=== PATIENT | male | born 1980 | race Caucasian/White ===

== ENCOUNTER 2017-05-11 15:35 | Emergency (ER) | payer SELFPAY ==
--- NOTE | 2017-05-11 15:57 | EDM.PDOC ---
ED HPI GENERAL MEDICAL PROBLEM - General Chief Complaint: Headache Stated Complaint: UNK Time Seen by Provider: 05/11/17 15:50 Source of Information: Reports: Patient History Limitations: Reports: No Limitations - History of Present Illness INITIAL COMMENTS - FREE TEXT/NARRATIVE: HISTORY AND PHYSICAL: History of present illness: [Patient comes to the emergency room with complaints of a headache. Began when he woke up around 9:00 this morning but became significantly worse around 9:30 when he also developed bloody nose. He has had some blurred vision but denies double vision and pain in his eyes. No chest pain shortness of breath or difficulty breathing. No nausea or vomiting. No weakness, numbness or tingling, no paralysis. Does not feel confused. He has no other complaints or concerns at this time. He reports a history of brain aneurysm 3-4 years ago at which time a benign brain mass was also found measuring approximately 1.6 cm. He underwent regular MRIs for several years while he lived in [place] and never experienced a change in size. He eventually got tired of the frequent follow-ups and so he quit going. Moved to [place] within the past month and has not yet established local primary care.] Review of systems: As per history of present illness and below otherwise all systems reviewed and negative. Past medical history: As per history of present illness and as reviewed below otherwise noncontributory. Surgical history: As per history of present illness and as reviewed below otherwise noncontributory. Social history: No reported history of drug or alcohol abuse. Family history: As per history of present illness and as reviewed below otherwise noncontributory. Physical exam: HEENT: Atraumatic, normocephalic. Wears glasses. Lungs: Clear to auscultation, breath sounds equal bilaterally. Heart: S1S2, regular rate and rhythm. Abdomen: Obese, Soft, nondistended, nontender. Pelvis: Stable nontender. Genitourinary: Deferred. Rectal: Deferred. Extremities: Atraumatic, ambulates without assistive device and difficulty. Moves all extremities without difficulty and weakness. Neurovascular unremarkable. Neuro: Awake, alert, oriented. Cranial nerves II through XII unremarkable. Motor and sensory unremarkable throughout. Exam nonfocal. Diagnostics: [CT head without contrast] Therapeutics: [Toradol 30 mg IV] Impression: [Headache] Plan: [Head CT shows 1.4 cm intraventricular lesion to the right frontal horn. There are no records available for review. Based on patient's report mass is unchanged. Toradol 30 mg given IV. Referral given to neurologist and primary care. He is in agreement with today's plan. All his questions are answered and concerns are addressed.] Definitive disposition and diagnosis as appropriate pending reevaluation and review of above. Headache Pain Score (Numeric/FACES): 7 - Related Data Allergies Allergy/AdvReac Type Severity Reaction Status Date / Time No Known Allergies Allergy Verified 05/11/17 15:41 Home Meds: Home Meds . [No Known Home Meds] 05/11/17 [History] Past Medical History Cardiovascular History: Reports: Aneurysm Neurological History: Reports: Other (See Below) Other Neuro History: brain aneurysm, brain mass - Infectious Disease History Infectious Disease History: Reports: Chicken Pox Social & Family History - Family History Family Medical History: Noncontributory - Tobacco Use Smoking Status *Q: Current Every Day Smoker Years of Tobacco use: 20 Packs/Tins Daily: 1 - Recreational Drug Use Recreational Drug Use: Yes Drug Use in Last 12 Months: No ED ROS GENERAL - Review of Systems Review Of Systems: ROS reveals no pertinent complaints other than HPI. - Physical Exam Exam: See Below Course - Vital Signs Last Recorded V/S: Last Vital Signs Temp 98.1 F 05/11/17 15:38 Pulse 78 05/11/17 16:47 Resp 14 05/11/17 16:47 BP 137/67 05/11/17 16:47 Pulse Ox 96 05/11/17 16:47 - Orders/Labs/Meds Orders: Active Orders 24 hr Category Date Time Status Head wo Cont [CT] Stat Exams 05/11/17 15:45 Taken Ketorolac [Toradol] Med 05/11/17 17:57 Once 30 mg IVPUSH ONETIME ONE Labs: Laboratory Tests 05/11/17 05/11/17 05/11/17 Range/Units 16:10 16:10 16:10 WBC 12.68 H (4.0-11.0) K/uL RBC 5.40 (4.50-5.90) M/uL Hgb 15.7 (13.0-17.0) g/dL Hct 46.2 (38.0-50.0) % MCV 85.6 (80.0-98.0) fL MCH 29.1 (27.0-32.0) pg MCHC 34.0 (31.0-37.0) g/dL RDW Std Deviation 50.3 (28.0-62.0) fl RDW Coeff of Vinh 16 H (11.0-15.0) % Plt Count 217 (150-400) K/uL MPV 9.80 (7.40-12.00) fL Add Manual Diff YES Neutrophils % (Manual) 62 (48.0-80.0) % Lymphocytes % (Manual) 23 (16.0-40.0) % Monocytes % (Manual) 11 (0.0-15.0) % Eosinophils % (Manual) 4 (0.0-7.0) % Nucleated RBC % 0.0 /100WBC Absolute Seg Neuts 7.9 H (1.4-5.7) Lymphocytes # (Manual) 2.9 H (0.6-2.4) Monocytes # (Manual) 1.4 H (0.0-0.8) Eosinophils # (Manual) 0.5 (0.0-0.7) Nucleated RBCs # 0 K/uL INR 1.00 (0.86-1.11) Sodium 137 (136-146) mmol/L Potassium 3.8 (3.5-5.1) mmol/L Chloride 103 (98-110) mmol/L Carbon Dioxide 24 (21-31) mmol/L BUN 12 (6.0-23.0) mg/dL Creatinine 0.7 (0.6-1.5) mg/dL Est Cr Clr Drug Dosing 157.05 mL/min Estimated GFR (MDRD) > 60.0 ml/min Glucose 107 (60-110) mg/dL Calcium 9.1 (8.8-10.8) mg/dL Total Bilirubin 0.2 (0.1-1.5) mg/dL AST 17 (5-40) IU/L ALT 25 (8-54) IU/L Alkaline Phosphatase 72 (40-150) Total Protein 6.8 (6.0-8.0) g/dL Albumin 3.5 (3.5-5.0) g/dL Globulin 3.3 (2.0-3.5) g/dL Albumin/Globulin Ratio 1.1 L (1.3-2.8) Departure - Departure Time of Disposition: 18:05 Disposition: Home, Self-Care 01 Condition: Good Clinical Impression: Headache, Brain mass - Discharge Information Referrals: PCP,None [Primary Care Provider] - Forms: ED Department Discharge Additional Instructions: The following information is given to patients seen in the emergency department who are being discharged to home. This information is to outline your options for follow-up care. We provide all patients seen in our emergency department with a follow-up referral. The need for follow-up, as well as the timing and circumstances, are variable depending upon the specifics of your emergency department visit. If you don't have a primary care physician on staff, we will provide you with a referral. We always advise you to contact your personal physician following an emergency department visit to inform them of the circumstance of the visit and for follow-up with them and/or the need for any referrals to a consulting specialist. The emergency department will also refer you to a specialist when appropriate. This referral assures that you have the opportunity for follow-up care with a specialist. All of these measure are taken in an effort to provide you with optimal care, which includes your follow-up. Under all circumstances we always encourage you to contact your private physician who remains a resource for coordinating your care. When calling for follow-up care, please make the office aware that this follow-up is from your recent emergency room visit. If for any reason you are refused follow-up, please contact the [facility] emergency department at and asked to speak to the emergency department charge nurse. [facility] Primary [facility] [address] [place] [id number] [facility] Specialty care- Neurology Professional Building [address] [place] [address], [address] [place] [address] Establish care with a local primary care provider's phone number is listed above. Schedule appointment with neurologist at clinic listed above. Use home medications for headache as needed. Return to ER as needed as discussed. - My Orders Last 24 Hours: My Active Orders 05/11/17 15:45 Head wo Cont [CT] Stat 05/11/17 17:57 Ketorolac [Toradol] 30 mg IVPUSH ONETIME ONE - Assessment/Plan Last 24 Hours: My Active Orders 05/11/17 15:45 Head wo Cont [CT] Stat 05/11/17 17:57 Ketorolac [Toradol] 30 mg IVPUSH ONETIME ONE
[2017-05-11 16:49] LABS: CHLORIDE,CL 103 mmol/L (98-110); SODIUM,NA 137 mmol/L (136-146)
[2017-05-11] MEDS ORDERED: Ketorolac 30 MG/ML SDV IVPUSH ONE (17:57)
[2017-05-11] MEDS ORDERED: Ketorolac 60 MG/2 ML SDV IM ONE (18:34)
--- NOTE | 2017-05-12 13:56 | CT ---
EXAM DATE: 05/11/17 PATIENT'S AGE: 36 Patient: LEE ANN PEERS Facility: [place], [place] Site . Site : 1980 Study: CT Head WO CONT [id number] 4:42:53 PM Ordering Physician: Doctor Mayen Final Report: INDICATION: Headache TECHNIQUE: CT head without contrast. COMPARISON: None available FINDINGS: The ventricles and sulci demonstrate normal configuration and size. There is a 1.4 x 0.7 x 0.6 centimeter ovoid isodense lesion within the right lateral ventricular frontal horn on image 32 with a small adjacent calcification. There is no mass effect or midline shift. There is no loss of aggarwal-white differentiation. There is no evidence of an acute intracranial hemorrhage. No acute calvarial fracture is seen. There are foci of mild paranasal sinus mucosal thickening. The mastoid air cells are clear. The visualized orbits are within normal limits. IMPRESSION: A 1.4 centimeter isodense intraventricular lesion in the right frontal horn. Recommend further evaluation with contrast MRI. Dictated by Davy Ko MD @ 05/11/2017 5:23:07 PM Dictated by: Davy Ko MD @ 05/11/2017 17:23:23 (Electronic Signature) Report Signed by Proxy. JESSICA
== END 2017-05-11 18:40 | disposition home or self-care (01) ==
LOC: MW.ED 15:35
DX: G93.89 Other specified disorders of brain (principal); R51 Headache; F17.210 Nicotine dependence, cigarettes, uncomplicated
CPT/HCPCS: 36415; 70450; 80053; 85025; 85610; 96372; 99284; J1885; 99283

== ENCOUNTER 2017-07-06 21:44 | Observation (INO) | payer SELFPAY ==
--- NOTE | 2017-07-06 21:59 | EDM.PDOC ---
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 Review of systems: As per history of present illness and below otherwise all systems reviewed and negative. Past medical history: As per history of present illness and as reviewed below otherwise noncontributory. Surgical history: As per history of present illness and as reviewed below otherwise noncontributory. Social history: No reported history of drug or alcohol abuse. Family history: As per history of present illness and as reviewed below otherwise noncontributory. Physical exam: HEENT: Atraumatic, normocephalic, pupils reactive, negative for conjunctival pallor or scleral icterus, mucous membranes moist, throat clear, neck supple, nontender, trachea midline. Lungs: Clear to auscultation, breath sounds equal bilaterally, chest nontender. Heart: S1S2, regular, negative for clicks, rubs, or JVD. Abdomen: Soft, nondistended, nontender. Negative for masses or hepatosplenomegaly. Negative for costovertebral tenderness. Pelvis: Stable nontender. Genitourinary: Deferred. Rectal: Deferred. Extremities: Patient has erythema noted bilaterally with warmth to palpation of his inferior extremities to his knees. There is no cords or calf pain CMS neurovascular unremarkable Neuro: Awake, alert, oriented. Cranial nerves II through XII unremarkable. Cerebellum unremarkable. Motor and sensory unremarkable throughout. Exam nonfocal. Diagnostics: CBC CMP UA UDS chest x-ray x-ray tib-fib bilaterally lactic acid Therapeutics: Saline 1 L bolus vancomycin 1 g IV Impression: #1 cellulitis Definitive disposition and diagnosis as appropriate pending reevaluation and review of above. bilateral leg Pain Score (Numeric/FACES): 2 - Related Data Allergies Allergy/AdvReac Type Severity Reaction Status Date / Time No Known Allergies Allergy Verified 07/06/17 21:47 Home Meds: Home Meds . [No Known Home Meds] 05/11/17 [History] Past Medical History HEENT History: Reports: None Cardiovascular History: Reports: Aneurysm Respiratory History: Reports: None Gastrointestinal History: Reports: None Genitourinary History: Reports: None Musculoskeletal History: Reports: None Neurological History: Reports: Other (See Below) Other Neuro History: brain aneurysm, brain mass 1.6cm Psychiatric History: Reports: None Endocrine/Metabolic History: Reports: None - Infectious Disease History Infectious Disease History: Reports: Chicken Pox Social & Family History - Family History Family Medical History: Noncontributory - Tobacco Use Smoking Status *Q: Current Every Day Smoker Years of Tobacco use: 15 Packs/Tins Daily: 2 - Recreational Drug Use Recreational Drug Use: Yes Drug Use in Last 12 Months: No Recreational Drug Type: Reports: Methamphetamine Review of Systems - Review of Systems Review Of Systems: ROS reveals no pertinent complaints other than HPI. ED EXAM, GENERAL - Physical Exam Exam: See Below (See dictated) Course - Vital Signs Last Recorded V/S: Last Vital Signs Temp 36.2 C 07/06/17 21:48 Pulse 96 07/06/17 21:48 Resp 22 H 07/06/17 21:48 BP 137/85 07/06/17 21:48 Pulse Ox 96 07/06/17 21:48 - Orders/Labs/Meds Orders: Active Orders 24 hr Category Date Time Status Tibia Fibula Lt [CR] Stat Exams 07/06/17 21:57 Taken Tibia Fibula Rt [CR] Stat Exams 07/06/17 21:57 Taken CULTURE BLOOD [BC] Stat Lab 07/06/17 22:11 Received CULTURE BLOOD [BC] Stat Lab 07/06/17 22:12 Received Blood Culture x2 Reflex Set [OM.PC] Stat Oth 07/06/17 21:57 Ordered Labs: Laboratory Tests 07/06/17 07/06/17 07/06/17 Range/Units 21:46 21:46 22:12 WBC 11.39 H (4.0-11.0) K/uL RBC 4.98 (4.50-5.90) M/uL Hgb 14.8 (13.0-17.0) g/dL Hct 43.5 (38.0-50.0) % MCV 87.3 (80.0-98.0) fL MCH 29.7 (27.0-32.0) pg MCHC 34.0 (31.0-37.0) g/dL RDW Std Deviation 47.4 (28.0-62.0) fl RDW Coeff of Vinh 15 (11.0-15.0) % Plt Count 218 (150-400) K/uL MPV 9.80 (7.40-12.00) fL Neut % (Auto) 63.7 (48.0-80.0) % Lymph % (Auto) 23.0 (16.0-40.0) % [place] % (Auto) 8.4 (0.0-15.0) % Eos % (Auto) 4.7 (0.0-7.0) % Baso % (Auto) 0.2 (0.0-1.5) % Neut # (Auto) 7.3 H (1.4-5.7) K/uL Lymph # (Auto) 2.6 H (0.6-2.4) K/uL [place] # (Auto) 1.0 H (0.0-0.8) K/uL Eos # (Auto) 0.5 (0.0-0.7) K/uL Baso # (Auto) 0.0 (0.0-0.1) K/uL Nucleated RBC % 0.0 /100WBC Nucleated RBCs # 0 K/uL Lactate (0.20-2.00) mmol/L Sodium (136-146) mmol/L Potassium (3.5-5.1) mmol/L Chloride (98-110) mmol/L Carbon Dioxide (21-31) mmol/L BUN (6.0-23.0) mg/dL Creatinine (0.6-1.5) mg/dL Est Cr Clr Drug Dosing mL/min Estimated GFR (MDRD) ml/min Glucose (60-110) mg/dL Calcium (8.8-10.8) mg/dL Total Bilirubin (0.1-1.5) mg/dL AST (5-40) IU/L ALT (8-54) IU/L Alkaline Phosphatase (40-150) Total Protein (6.0-8.0) g/dL Albumin (3.5-5.0) g/dL Globulin (2.0-3.5) g/dL Albumin/Globulin Ratio (1.3-2.8) Urine Color YELLOW Urine Appearance CLEAR Urine pH 7.5 (5.0-8.0) Ur Specific [place] 1.015 (1.001-1.035) Urine Protein NEGATIVE (NEGATIVE) mg/dL Urine Glucose (UA) NEGATIVE (NEGATIVE) mg/dL Urine Ketones NEGATIVE (NEGATIVE) mg/dL Urine Occult Blood NEGATIVE (NEGATIVE) Urine Nitrite NEGATIVE (NEGATIVE) Urine Bilirubin NEGATIVE (NEGATIVE) Urine Urobilinogen 0.2 (<2.0) EU/dL Ur Leukocyte Esterase NEGATIVE (NEGATIVE) Urine RBC 0-1 (0-2/HPF) Urine WBC 0-1 (0-5/HPF) Ur Epithelial Cells RARE (NONE-FEW) Urine Bacteria FEW (NEGATIVE) Urine Opiates Screen NEGATIVE (NEGATIVE) Ur Oxycodone Screen NEGATIVE (NEGATIVE) Urine Methadone Screen NEGATIVE (NEGATIVE) Ur Barbiturates Screen NEGATIVE (NEGATIVE) Ur Phencyclidine Scrn NEGATIVE (NEGATIVE) Ur Amphetamine Screen NEGATIVE (NEGATIVE) U Methamphetamines Scrn NEGATIVE (NEGATIVE) U Benzodiazepines Scrn NEGATIVE (NEGATIVE) U Cocaine Metab Screen NEGATIVE (NEGATIVE) U Marijuana (THC) Screen NEGATIVE (NEGATIVE) 07/06/17 07/06/17 Range/Units 22:12 22:12 WBC (4.0-11.0) K/uL RBC (4.50-5.90) M/uL Hgb (13.0-17.0) g/dL Hct (38.0-50.0) % MCV (80.0-98.0) fL MCH (27.0-32.0) pg MCHC (31.0-37.0) g/dL RDW Std Deviation (28.0-62.0) fl RDW Coeff of Vinh (11.0-15.0) % Plt Count (150-400) K/uL MPV (7.40-12.00) fL Neut % (Auto) (48.0-80.0) % Lymph % (Auto) (16.0-40.0) % [place] % (Auto) (0.0-15.0) % Eos % (Auto) (0.0-7.0) % Baso % (Auto) (0.0-1.5) % Neut # (Auto) (1.4-5.7) K/uL Lymph # (Auto) (0.6-2.4) K/uL [place] # (Auto) (0.0-0.8) K/uL Eos # (Auto) (0.0-0.7) K/uL Baso # (Auto) (0.0-0.1) K/uL Nucleated RBC % /100WBC Nucleated RBCs # K/uL Lactate 1.3 (0.20-2.00) mmol/L Sodium 138 (136-146) mmol/L Potassium 4.6 (3.5-5.1) mmol/L Chloride 103 (98-110) mmol/L Carbon Dioxide 26 (21-31) mmol/L BUN 14 (6.0-23.0) mg/dL Creatinine 0.8 (0.6-1.5) mg/dL Est Cr Clr Drug Dosing 137.42 mL/min Estimated GFR (MDRD) > 60.0 ml/min Glucose 115 H (60-110) mg/dL Calcium 9.2 (8.8-10.8) mg/dL Total Bilirubin 0.4 (0.1-1.5) mg/dL AST 33 (5-40) IU/L ALT 41 (8-54) IU/L Alkaline Phosphatase 68 (40-150) Total Protein 7.3 (6.0-8.0) g/dL Albumin 3.6 (3.5-5.0) g/dL Globulin 3.7 H (2.0-3.5) g/dL Albumin/Globulin Ratio 1.0 L (1.3-2.8) Urine Color Urine Appearance Urine pH (5.0-8.0) Ur Specific [place] (1.001-1.035) Urine Protein (NEGATIVE) mg/dL Urine Glucose (UA) (NEGATIVE) mg/dL Urine Ketones (NEGATIVE) mg/dL Urine Occult Blood (NEGATIVE) Urine Nitrite (NEGATIVE) Urine Bilirubin (NEGATIVE) Urine Urobilinogen (<2.0) EU/dL Ur Leukocyte Esterase (NEGATIVE) Urine RBC (0-2/HPF) Urine WBC (0-5/HPF) Ur Epithelial Cells (NONE-FEW) Urine Bacteria (NEGATIVE) Urine Opiates Screen (NEGATIVE) Ur Oxycodone Screen (NEGATIVE) Urine Methadone Screen (NEGATIVE) Ur Barbiturates Screen (NEGATIVE) Ur Phencyclidine Scrn (NEGATIVE) Ur Amphetamine Screen (NEGATIVE) U Methamphetamines Scrn (NEGATIVE) U Benzodiazepines Scrn (NEGATIVE) U Cocaine Metab Screen (NEGATIVE) U Marijuana (THC) Screen (NEGATIVE) Meds: Medications Discontinued Medications Generic Name Dose Route Start Last Admin Trade Name Geremias PRN Reason Stop Dose Admin Vancomycin HCl 1 gm/ Sodium 250 mls @ 250 mls/hr 07/06/17 21:57 07/06/17 22: 20 Chloride IV 07/06/17 22:56 250 mls/hr ONETIME ONE Administration Departure - Departure Time of Disposition: 23:11 Disposition: Refer to Observation Condition: Good Clinical Impression: Cellulitis - Discharge Information Referrals: PCP,None [Primary Care Provider] - Forms: ED Department Discharge - My Orders Last 24 Hours: My Active Orders 07/06/17 21:57 Tibia Fibula Lt [CR] Stat Tibia Fibula Rt [CR] Stat Blood Culture x2 Reflex Set [OM.PC] Stat 07/06/17 22:11 CULTURE BLOOD [BC] Stat 07/06/17 22:12 CULTURE BLOOD [BC] Stat - Assessment/Plan Last 24 Hours: My Active Orders 07/06/17 21:57 Tibia Fibula Lt [CR] Stat Tibia Fibula Rt [CR] Stat Blood Culture x2 Reflex Set [OM.PC] Stat 07/06/17 22:11 CULTURE BLOOD [BC] Stat 07/06/17 22:12 CULTURE BLOOD [BC] Stat
[2017-07-06 22:54] LABS: CHLORIDE,CL 103 mmol/L (98-110); SODIUM,NA 138 mmol/L (136-146)
[2017-07-07] MEDS ORDERED: Ondansetron 4 MG/2 ML SDV IVPUSH PRN (00:27)
[2017-07-07] MEDS ORDERED: Acetaminophen 325 MG Tab PO PRN (00:27)
[2017-07-07] MEDS: Nicotine 14 MG/24 Hr Patch TRDERM SCH ×2 (01:10→08:04)
[2017-07-07] MEDS ORDERED: Vancomycin 1 GM, Vancomycin 750 MG in Sodium Chloride 0.9% 500 ML IV SCH ×2 (06:00)
[2017-07-07 06:05] LABS: CHLORIDE,CL 104 mmol/L (98-110); SODIUM,NA 140 mmol/L (136-146)
[2017-07-07] MEDS: Vancomycin 1.75 GM in Sodium Chloride 0.9% 500 ML IV SCH ×2 (13:31→21:34)
[2017-07-07] MEDS ORDERED: Docusate Sodium 100 MG Cap PO PRN (14:44)
[2017-07-07] MEDS ORDERED: Albuterol/Ipratropium 3.0-0.5 MG/3 ML Neb Soln NEB PRN (14:44)
[2017-07-07] MEDS ORDERED: Ondansetron 4 MG Tab.DIS PO PRN (14:44)
--- NOTE | 2017-07-07 15:10 | PCM.HP ---
H&P History of Present Illness - General Date of Service: 07/07/17 Admit Problem/Dx: Admission Diagnosis/Problem Admission Diagnosis/Problem Cellulitis - History of Present Illness Initial Comments - Free Text/Narative: 36 yo male with no relevant pmh is admitted for cellulitis of BL LE. It began about 1 week ago. Patient denies any recent cuts, injuries, travel or hiking. He noticed pain and redness develop at his BL inner knees and inner lower legs. Over the next few days the pain owrsened and it got to the point where he was having difficulty walking which is why he decided to come in. He has been taking acetaminophen but it does not help with pain. He denies any fever, chillsm night sweats, nausea, vomiting, diarrhea or altered mental status. He denies any previous history of cellulitis or MRSA. He smokes 1 ppd. bilateral leg Pain Score (Numeric/FACES): 3 - Related Data Allergies/Adverse Reactions: Allergies Allergy/AdvReac Type Severity Reaction Status Date / Time No Known Allergies Allergy Verified 07/06/17 21:47 Home Medications: Home Meds . [No Known Home Meds] 05/11/17 [History] Past Medical History HEENT History: Reports: None Cardiovascular History: Reports: Aneurysm Other Cardiovascular History: 2007 brain aneurysm Respiratory History: Reports: None Gastrointestinal History: Reports: None Genitourinary History: Reports: None Musculoskeletal History: Reports: Fracture Neurological History: Reports: Other (See Below) Other Neuro History: brain aneurysm, brain mass 1.6cm Psychiatric History: Reports: Addiction, Anxiety, Depression Endocrine/Metabolic History: Reports: Obesity/BMI 30+ - Infectious Disease History Infectious Disease History: Reports: Chicken Pox - Past Surgical History Cardiovascular Surgical History: Reports: None Endocrine Surgical History: Reports: None Neurological Surgical History: Reports: None Social & Family History - Family History Family Medical History: Noncontributory - Tobacco Use Smoking Status *Q: Current Every Day Smoker Years of Tobacco use: 18 Packs/Tins Daily: 1 Second Hand Smoke Exposure: Yes - Caffeine Use Caffeine Use: Reports: Coffee, Energy Drinks, Soda, Tea - Alcohol Use Days Per Week of Alcohol Use: 0 - Recreational Drug Use Recreational Drug Use: Yes Drug Use in Last 12 Months: Yes Recreational Drug Type: Reports: Cocaine, Marijuana/Hashish, Methamphetamine Recreational Drug Use Frequency: Not Used In Over 5 Months H&P Review of Systems - Review of Systems: Review Of Systems: See Below General: Reports: No Symptoms HEENT: Reports: No Symptoms Pulmonary: Reports: No Symptoms Cardiovascular: Reports: No Symptoms Gastrointestinal: Reports: No Symptoms Genitourinary: Reports: No Symptoms Musculoskeletal: Reports: Foot Pain, Muscle Pain, Muscle Stiffness Skin: Reports: Change in Color Psychiatric: Reports: No Symptoms Neurological: Reports: No Symptoms Hematologic/Lymphatic: Reports: No Symptoms Immunologic: Reports: No Symptoms Exam - Exam Exam: See Below - Vital Signs Vital Signs: Last Vital Signs Temp 36.5 C 07/07/17 12:00 Pulse 87 07/07/17 12:00 Resp 22 H 07/07/17 12:00 BP 154/87 H 07/07/17 12:00 Pulse Ox 96 07/07/17 12:00 Weight: 184.295 kg - Exam General: Alert, Oriented, 4 HEENT: Conjunctiva Clear, EACs Clear, EOMI, Hearing Intact, Mucosa Moist & [place] , Nares Patent, Normal Nasal Septum, Posterior Pharynx Clear, PERRLA Neck: Supple, Trachea Midline, 2 Lungs: Clear to Auscultation, Normal Respiratory Effort Cardiovascular: Regular Rate, Regular Rhythm GI/Abdominal Exam: Normal Bowel Sounds, Soft, Non-Tender, No Organomegaly, No Distention Back Exam: Normal Inspection Extremities: Normal Range of Motion, Normal Capillary Refill, Other (Pain with flexion of BL kness and with dorsiflexion of BL feet ) Peripheral Pulses: 2+: Dorsalis Pedis (L), Dorsalis Pedis (R) Skin Alteration Location (Drawings Not To Scale): 1 - mild redness, warm, hard to palpation 2 - mild redness, warm, hard to palpation 3 - mild redness, warm, hard to palpation 4 - mild redness, warm, hard to palpation Neurological: Cranial Nerves Intact, Reflexes Equal Bilateral Neuro Extensive - Mental Status: Alert, Oriented x3 Neuro Extensive - Motor, Sensory, Reflexes: Normal Gait Psychiatric: Alert, Normal Affect, Normal Mood - Patient Data Lab Results Last 24 hrs: Laboratory Results - last 24 hr 07/07/17 07/07/17 Range/Units 05:19 05:19 WBC 10.04 (4.0-11.0) K/uL RBC 5.01 (4.50-5.90) M/uL Hgb 14.8 (13.0-17.0) g/dL Hct 44.3 (38.0-50.0) % MCV 88.4 (80.0-98.0) fL MCH 29.5 (27.0-32.0) pg MCHC 33.4 (31.0-37.0) g/dL RDW Std Deviation 48.3 (28.0-62.0) fl RDW Coeff of Vinh 15 (11.0-15.0) % Plt Count 214 (150-400) K/uL MPV 9.60 (7.40-12.00) fL Neut % (Auto) 60.0 (48.0-80.0) % Lymph % (Auto) 26.0 (16.0-40.0) % [place] % (Auto) 8.0 (0.0-15.0) % Eos % (Auto) 5.6 (0.0-7.0) % Baso % (Auto) 0.4 (0.0-1.5) % Neut # (Auto) 6.0 H (1.4-5.7) K/uL Lymph # (Auto) 2.6 H (0.6-2.4) K/uL [place] # (Auto) 0.8 (0.0-0.8) K/uL Eos # (Auto) 0.6 (0.0-0.7) K/uL Baso # (Auto) 0.0 (0.0-0.1) K/uL Nucleated RBC % 0.0 /100WBC Nucleated RBCs # 0 K/uL Sodium 140 (136-146) mmol/L Potassium 4.4 (3.5-5.1) mmol/L Chloride 104 (98-110) mmol/L Carbon Dioxide 29 (21-31) mmol/L BUN 14 (6.0-23.0) mg/dL Creatinine 0.7 (0.6-1.5) mg/dL Est Cr Clr Drug Dosing 157.05 mL/min Estimated GFR (MDRD) > 60.0 ml/min Glucose 93 (60-110) mg/dL Calcium 9.0 (8.8-10.8) mg/dL Result Diagrams: 07/07/17 05:19 07/07/17 05:19 *Q Meaningful Use (ADM) - VTE *Q VTE Criteria *Q: - Stroke *Q Stroke Criteria *Q: - AMI *Q AMI Criteria *Q: Problem List Initiated/Reviewed/Updated: Yes Orders Last 24hrs: Active Orders 24 hr Category Date Time Status Patient Status [ADT] Routine ADT 07/07/17 14:45 Active Antiembolic Devices [RC] PER UNIT ROUTINE Care 07/07/17 14:53 Ordered Oxygen Therapy [RC] PRN Care 07/07/17 14:45 Ordered RT Aerosol Therapy [RC] ASDIRECTED Care 07/07/17 14:59 Inactive Up ad Angela [RC] ASDIRECTED Care 07/07/17 14:44 Ordered VTE/DVT Education [RC] PER UNIT ROUTINE Care 07/07/17 14:45 Ordered Vital Signs [RC] Q4H Care 07/07/17 14:45 Ordered Regular Diet [DIET] Diet 07/07/17 Breakfast Active BASIC METABOLIC PANEL,BMP [CHEM] AM Lab 07/09/17 05:11 Ordered BASIC METABOLIC PANEL,BMP [CHEM] AM Lab 07/10/17 05:11 Ordered BASIC METABOLIC PANEL,BMP [CHEM] AM Lab 07/11/17 05:11 Ordered BASIC METABOLIC PANEL,BMP [CHEM] AM Lab 07/12/17 05:11 Ordered BASIC METABOLIC PANEL,BMP [CHEM] AM Lab 07/08/17 05:11 Ordered CBC WITH AUTO DIFF [HEME] AM Lab 07/09/17 05:11 Ordered CBC WITH AUTO DIFF [HEME] AM Lab 07/10/17 05:11 Ordered CBC WITH AUTO DIFF [HEME] AM Lab 07/11/17 05:11 Ordered CBC WITH AUTO DIFF [HEME] AM Lab 07/12/17 05:11 Ordered CBC WITH AUTO DIFF [HEME] AM Lab 07/08/17 05:11 Ordered VANCOMYCIN TROUGH [CHEM] Timed Lab 07/08/17 05:30 Ordered Acetaminophen [Tylenol] Med 07/07/17 00:27 Active 650 mg PO Q4H PRN Albuterol/Ipratropium [DuoNeb 3.0-0.5 MG/3 ML] Med 07/07/17 14:44 Stop Req 3 ml NEB Q4HRRT PRN Docusate Sodium [Colace] Med 07/07/17 14:44 Ordered 100 mg PO BID PRN Enoxaparin [Lovenox] Med 07/08/17 09:00 Ordered 40 mg SUBCUT DAILY Nicotine [Habitrol] Med 07/07/17 00:00 Active 14 mg TRDERM DAILY Nicotine [Habitrol] Med 07/07/17 14:45 Ordered 21 mg TRDERM DAILY Ondansetron [Zofran ODT] Med 07/07/17 14:44 Ordered 4 mg PO Q6H PRN Ondansetron [Zofran] Med 07/07/17 00:27 Active 4 mg IVPUSH Q4H PRN Vancomycin 1.75 gm Med 07/07/17 14:00 Active Sodium Chloride 0.9% [Normal Saline] 500 ml IV Q8H Vancomycin Pharmacy to Dose [Pharmacy to Dose - Med 07/07/17 00:30 Active Vancomycin] 1 dose .XX ASDIRECTED cefTRIAXone [Rocephin in Dextrose,Iso-Osm 2 GM/50 ML] 2 Med 07/07/17 14:45 Active gm Premix Bag 1 bag IV Q24H oxyCODONE Med 07/07/17 14:44 Ordered 5 mg PO Q6H PRN Sequential Compression Device [OM.PC] Per Unit Routine Oth 07/07/17 14:48 Ordered Resuscitation Status Routine Resus Stat 07/07/17 14:44 Ordered Medication Orders Acetaminophen (Tylenol) 650 mg PO Q4H PRN PRN Reason: Pain Last Admin: 07/07/17 12:07 Dose: 650 mg Albuterol/Ipratropium (Duoneb 3.0-0.5 Mg/3 Ml) 3 ml NEB Q4HRRT PRN PRN Reason: Shortness Of Breath/wheezing Docusate Sodium (Colace) 100 mg PO BID PRN PRN Reason: Constipation Enoxaparin Sodium (Lovenox) 40 mg SUBCUT DAILY [facility] Vancomycin HCl 1.75 gm/ Sodium (Chloride) 500 mls @ 333.333 mls/hr IV Q8H [facility] Last Admin: 07/07/17 13:31 Dose: 333.333 mls/hr Ceftriaxone Sodium/Dextrose 2 (gm/ Premix) 50 mls @ 100 mls/hr IV Q24H [facility] Nicotine (Habitrol) 14 mg TRDERM DAILY [facility] Last Admin: 07/07/17 08:04 Dose: 14 mg Admin: 07/07/17 01:10 Dose: 14 mg Nicotine (Habitrol) 21 mg TRDERM DAILY [facility] Ondansetron HCl (Zofran) 4 mg IVPUSH Q4H PRN PRN Reason: nausea/vomitting Ondansetron HCl (Zofran Odt) 4 mg PO Q6H PRN PRN Reason: nausea, able to take PO Oxycodone HCl (Oxycodone) 5 mg PO Q6H PRN PRN Reason: Pain (Moderate over 4) Vancomycin HCl (Pharmacy To Dose - Vancomycin) 1 dose .XX ASDIRECTED [facility] Assessment/Plan Comment:: 36 year old male with no relevant pmh admitted for cellulitis of BL LE. Labs and vitals WNL. Blood cultures obtained ED. Afebrile. XR of BL Tibia-Fibula negative for acute changes 1. Cellulitis, BL LE -admit to obs -regular diet -start Rocephin IV and Vancomycin IV -Acetaminophen for mild pain -Oxycodone 5 mg q6hour PRN for moderate pain 5 or above -f/u blood cultures obtained in ED 2. Tobacco Abuse -Nicotine Patch 21 mg
[2017-07-07] MEDS: oxyCODONE 5 MG Tab PO PRN (16:51)
[2017-07-07] MEDS: cefTRIAXone 2 GM in Premix Bag 1 BAG IV SCH (16:57)
[2017-07-07] MEDS: Nicotine 21 MG/24 Hr Patch TRDERM SCH (17:03)
[2017-07-07] MEDS ORDERED: Furosemide 40 MG Tab PO ONE (19:52)
[2017-07-08 06:35] LABS: CHLORIDE,CL 105 mmol/L (98-110); SODIUM,NA 139 mmol/L (136-146)
[2017-07-08] MEDS: Vancomycin 1.75 GM in Sodium Chloride 0.9% 500 ML IV SCH ×3 (07:05→22:05)
[2017-07-08] MEDS: Enoxaparin 40 MG/0.4 ML Syringe SUBCUT SCH (08:28)
[2017-07-08] MEDS ORDERED: Furosemide 40 MG/4 ML VIAL IVPUSH ONE (10:28)
[2017-07-08] MEDS ORDERED: Furosemide 40 MG Tab PO ONE (10:29)
--- NOTE | 2017-07-08 10:32 | PCM.PN ---
- Review of Systems Systems Review Comment:: edema improving, shortness of breath improving - Patient Data Vitals - Most Recent: Last Vital Signs Temp 36.7 C 07/08/17 08:00 Pulse 84 07/08/17 08:00 Resp 18 07/08/17 08:00 BP 133/53 L 07/08/17 08:00 Pulse Ox 97 07/08/17 08:00 Weight - Most Recent: 184.295 kg I&O - Last 24 Hours: Intake & Output 07/07/17 07/08/17 07/08/17 22:59 06:59 14:59 Intake Total 2180 1695 Output Total 2050 1750 Balance 130 -55 Lab Results Last 24 Hours: Laboratory Results - last 24 hr 07/08/17 07/08/17 07/08/17 Range/Units 05:31 05:31 05:31 WBC 9.97 (4.0-11.0) K/uL RBC 4.99 (4.50-5.90) M/uL Hgb 14.3 (13.0-17.0) g/dL Hct 44.6 (38.0-50.0) % MCV 89.4 (80.0-98.0) fL MCH 28.7 (27.0-32.0) pg MCHC 32.1 (31.0-37.0) g/dL RDW Std Deviation 49.8 (28.0-62.0) fl RDW Coeff of Vinh 15 (11.0-15.0) % Plt Count 229 (150-400) K/uL MPV 10.00 (7.40-12.00) fL Neut % (Auto) 58.6 (48.0-80.0) % Lymph % (Auto) 26.8 (16.0-40.0) % [place] % (Auto) 8.0 (0.0-15.0) % Eos % (Auto) 6.2 (0.0-7.0) % Baso % (Auto) 0.4 (0.0-1.5) % Neut # (Auto) 5.8 H (1.4-5.7) K/uL Lymph # (Auto) 2.7 H (0.6-2.4) K/uL [place] # (Auto) 0.8 (0.0-0.8) K/uL Eos # (Auto) 0.6 (0.0-0.7) K/uL Baso # (Auto) 0.0 (0.0-0.1) K/uL Nucleated RBC % 0.0 /100WBC Nucleated RBCs # 0 K/uL Sodium 139 (136-146) mmol/L Potassium 4.3 (3.5-5.1) mmol/L Chloride 105 (98-110) mmol/L Carbon Dioxide 25 (21-31) mmol/L BUN 14 (6.0-23.0) mg/dL Creatinine 0.7 (0.6-1.5) mg/dL Est Cr Clr Drug Dosing 157.05 mL/min Estimated GFR (MDRD) > 60.0 ml/min Glucose 112 H (60-110) mg/dL Calcium 8.7 L (8.8-10.8) mg/dL Vancomycin Trough 10.2 (5-15) ug/mL Med Orders - Current: Current Medications Acetaminophen (Tylenol) 650 mg PO Q4H PRN PRN Reason: Pain Last Admin: 07/07/17 12:07 Dose: 650 mg Docusate Sodium (Colace) 100 mg PO BID PRN PRN Reason: Constipation Enoxaparin Sodium (Lovenox) 40 mg SUBCUT DAILY [facility] Last Admin: 07/08/17 08:28 Dose: 40 mg Vancomycin HCl 1.75 gm/ Sodium (Chloride) 500 mls @ 333.333 mls/hr IV Q8H [facility] Last Admin: 07/08/17 07:05 Dose: 333.333 mls/hr Ceftriaxone Sodium/Dextrose 2 (gm/ Premix) 50 mls @ 100 mls/hr IV Q24H [facility] Last Admin: 07/07/17 16:57 Dose: 100 mls/hr Nicotine (Habitrol) 21 mg TRDERM Q24H [facility] Last Admin: 07/07/17 17:03 Dose: 21 mg Ondansetron HCl (Zofran) 4 mg IVPUSH Q4H PRN PRN Reason: nausea/vomitting Ondansetron HCl (Zofran Odt) 4 mg PO Q6H PRN PRN Reason: nausea, able to take PO Oxycodone HCl (Oxycodone) 5 mg PO Q6H PRN PRN Reason: Pain (Moderate over 4) Last Admin: 07/07/17 16:51 Dose: 5 mg Vancomycin HCl (Pharmacy To Dose - Vancomycin) 1 dose .XX ASDIRECTED [facility] Discontinued Medications Albuterol/Ipratropium (Duoneb 3.0-0.5 Mg/3 Ml) 3 ml NEB Q4HRRT PRN PRN Reason: Shortness Of Breath/wheezing Furosemide (Lasix) 40 mg PO ONETIME ONE Stop: 07/07/17 19:53 Last Admin: 07/07/17 21:34 Dose: 40 mg Furosemide (Lasix) 40 mg IVPUSH NOW ONE Stop: 07/08/17 10:29 Furosemide (Lasix) 40 mg PO ONETIME ONE Stop: 07/08/17 10:30 Vancomycin HCl 1 gm/ Sodium (Chloride) 250 mls @ 250 mls/hr IV ONETIME ONE Stop: 07/06/17 22:56 Last Admin: 07/06/17 22:20 Dose: 250 mls/hr Vancomycin HCl 0.75 gm/ Sodium (Chloride) 250 mls @ 166.667 mls/hr IV ONETIME ONE Stop: 07/07/17 02:29 Last Admin: 07/07/17 01:29 Dose: 166.667 mls/hr Vancomycin HCl 1 gm/Vancomycin HCl 750 mg/ Sodium Chloride 500 mls @ 333.333 mls/hr IV Q8H [facility] Last Admin: 07/07/17 06:29 Dose: 333.333 mls/hr Nicotine (Habitrol) 14 mg TRDERM DAILY [facility] Last Admin: 07/07/17 08:04 Dose: 14 mg - Exam General: Alert, Oriented Lungs: Clear to Auscultation, Normal Respiratory Effort Cardiovascular: Regular Rate, Regular Rhythm GI/Abdominal Exam: Soft, Non-Tender Extremities: Other (edema and erythem of lower legs improving) - Problem List Review Problem List Initiated/Reviewed/Updated: Yes - My Orders Last 24 Hours: My Active Orders 07/07/17 14:00 Vancomycin 1.75 gm Sodium Chloride 0.9% [Normal Saline] 500 ml IV Q8H 07/07/17 19:52 Chest 2V [CR] Routine 07/08/17 10:28 Furosemide [Lasix] 40 mg IVPUSH NOW ONE - Plan Plan:: 36 year old male with no relevant pmh admitted for cellulitis of BL LE. 1. Cellulitis, BL LE continue vancomycina and rocephin will give addition 40mg lasix today, patient will need referal for outpatient echocardiogram 2. Tobacco Abuse -Nicotine Patch 21 mg
[2017-07-08] MEDS: Nicotine 21 MG/24 Hr Patch TRDERM SCH (15:12)
[2017-07-08] MEDS: cefTRIAXone 2 GM in Premix Bag 1 BAG IV SCH (15:12)
[2017-07-08] MEDS: oxyCODONE 5 MG Tab PO PRN (20:02)
[2017-07-09] MEDS: Vancomycin 1.75 GM in Sodium Chloride 0.9% 500 ML IV SCH ×2 (06:06→14:41)
[2017-07-09 07:15] LABS: CHLORIDE,CL 104 mmol/L (98-110); SODIUM,NA 139 mmol/L (136-146)
[2017-07-09] MEDS: oxyCODONE 5 MG Tab PO PRN ×2 (07:22→14:40)
[2017-07-09] MEDS: Enoxaparin 40 MG/0.4 ML Syringe SUBCUT SCH (09:05)
--- NOTE | 2017-07-09 13:45 | PCM.DCSUM1 ---
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 He was admitted for cellulitis and treated with IV vancomycin and zosyn. He did received two doses of lasix daily that helped improve edema. He did have improvement of erythema and today is requesting discharge home. He was discharged on oral Bactrim for five more days. He is to follow up with a PCP at [facility]. - Discharge Plan Prescriptions/Med Rec: Sulfamethoxazole/Trimethoprim [Bactrim Ds Tablet] 1 each PO BID #10 tablet Home Medications: Home Meds Sulfamethoxazole/Trimethoprim [Bactrim Ds Tablet] 1 each PO BID #10 tablet 07/09 [Rx] Forms: ED Department Discharge Referrals: PCP,None [Primary Care Provider] - - Patient Data Vitals - Most Recent: Last Vital Signs Temp 36.6 C 07/09/17 11:35 Pulse 80 07/09/17 11:35 Resp 17 07/09/17 11:35 BP 140/71 07/09/17 11:35 Pulse Ox 94 L 07/09/17 11:35 Weight - Most Recent: 184.295 kg I&O - Last 24 hours: Intake & Output 07/08/17 07/09/17 07/09/17 22:59 06:59 14:59 Intake Total 2100 1210 Output Total 2680 2950 Balance -580 -1740 Lab Results - Last 24 hrs: Laboratory Results - last 24 hr 07/09/17 07/09/17 Range/Units 05:55 05:55 WBC 10.02 (4.0-11.0) K/uL RBC 5.00 (4.50-5.90) M/uL Hgb 14.6 (13.0-17.0) g/dL Hct 44.5 (38.0-50.0) % MCV 89.0 (80.0-98.0) fL MCH 29.2 (27.0-32.0) pg MCHC 32.8 (31.0-37.0) g/dL RDW Std Deviation 48.4 (28.0-62.0) fl RDW Coeff of Vinh 15 (11.0-15.0) % Plt Count 220 (150-400) K/uL MPV 9.90 (7.40-12.00) fL Neut % (Auto) 61.5 (48.0-80.0) % Lymph % (Auto) 24.3 (16.0-40.0) % [place] % (Auto) 7.5 (0.0-15.0) % Eos % (Auto) 6.4 (0.0-7.0) % Baso % (Auto) 0.3 (0.0-1.5) % Neut # (Auto) 6.2 H (1.4-5.7) K/uL Lymph # (Auto) 2.4 (0.6-2.4) K/uL [place] # (Auto) 0.8 (0.0-0.8) K/uL Eos # (Auto) 0.6 (0.0-0.7) K/uL Baso # (Auto) 0.0 (0.0-0.1) K/uL Nucleated RBC % 0.0 /100WBC Nucleated RBCs # 0 K/uL Sodium 139 (136-146) mmol/L Potassium 4.3 (3.5-5.1) mmol/L Chloride 104 (98-110) mmol/L Carbon Dioxide 25 (21-31) mmol/L BUN 13 (6.0-23.0) mg/dL Creatinine 0.7 (0.6-1.5) mg/dL Est Cr Clr Drug Dosing 157.05 mL/min Estimated GFR (MDRD) > 60.0 ml/min Glucose 106 (60-110) mg/dL Calcium 8.6 L (8.8-10.8) mg/dL Med Orders - Current: Current Medications Acetaminophen (Tylenol) 650 mg PO Q4H PRN PRN Reason: Pain Last Admin: 07/07/17 12:07 Dose: 650 mg Docusate Sodium (Colace) 100 mg PO BID PRN PRN Reason: Constipation Enoxaparin Sodium (Lovenox) 40 mg SUBCUT DAILY [facility] Last Admin: 07/09/17 09:05 Dose: 40 mg Vancomycin HCl 1.75 gm/ Sodium (Chloride) 500 mls @ 333.333 mls/hr IV Q8H [facility] Last Admin: 07/09/17 06:06 Dose: 333.333 mls/hr Ceftriaxone Sodium/Dextrose 2 (gm/ Premix) 50 mls @ 100 mls/hr IV Q24H [facility] Last Admin: 07/08/17 15:12 Dose: 100 mls/hr Nicotine (Habitrol) 21 mg TRDERM Q24H [facility] Last Admin: 07/08/17 15:12 Dose: 21 mg Ondansetron HCl (Zofran) 4 mg IVPUSH Q4H PRN PRN Reason: nausea/vomitting Ondansetron HCl (Zofran Odt) 4 mg PO Q6H PRN PRN Reason: nausea, able to take PO Oxycodone HCl (Oxycodone) 5 mg PO Q6H PRN PRN Reason: Pain (Moderate over 4) Last Admin: 07/09/17 07:22 Dose: 5 mg Vancomycin HCl (Pharmacy To Dose - Vancomycin) 1 dose .XX ASDIRECTED [facility] Discontinued Medications Albuterol/Ipratropium (Duoneb 3.0-0.5 Mg/3 Ml) 3 ml NEB Q4HRRT PRN PRN Reason: Shortness Of Breath/wheezing Furosemide (Lasix) 40 mg PO ONETIME ONE Stop: 07/07/17 19:53 Last Admin: 07/07/17 21:34 Dose: 40 mg Furosemide (Lasix) 40 mg IVPUSH NOW ONE Stop: 07/08/17 10:29 Last Admin: 07/08/17 10:30 Dose: Not Given Furosemide (Lasix) 40 mg PO ONETIME ONE Stop: 07/08/17 10:30 Last Admin: 07/08/17 10:34 Dose: 40 mg Vancomycin HCl 1 gm/ Sodium (Chloride) 250 mls @ 250 mls/hr IV ONETIME ONE Stop: 07/06/17 22:56 Last Admin: 07/06/17 22:20 Dose: 250 mls/hr Vancomycin HCl 0.75 gm/ Sodium (Chloride) 250 mls @ 166.667 mls/hr IV ONETIME ONE Stop: 07/07/17 02:29 Last Admin: 07/07/17 01:29 Dose: 166.667 mls/hr Vancomycin HCl 1 gm/Vancomycin HCl 750 mg/ Sodium Chloride 500 mls @ 333.333 mls/hr IV Q8H [facility] Last Admin: 07/07/17 06:29 Dose: 333.333 mls/hr Nicotine (Habitrol) 14 mg TRDERM DAILY [facility] Last Admin: 07/07/17 08:04 Dose: 14 mg *Q Meaningful Use (DIS) - VTE *Q VTE Criteria *Q: - Stroke *Q Stroke Criteria *Q: - AMI *Q AMI Criteria *Q:
[2017-07-09] MEDS: Nicotine 21 MG/24 Hr Patch TRDERM SCH (14:47)
[2017-07-09] MEDS: cefTRIAXone 2 GM in Premix Bag 1 BAG IV SCH (14:47)
[2017-07-09] MEDS ORDERED: Sulfamethoxazole/Trimethoprim 800-160 MG Tab PO SCH (21:00)
--- NOTE | 2017-07-10 17:29 | CR ---
EXAM DATE: 07/06/17 PATIENT'S AGE: 36 Patient: LEE ANN PERES Facility: [place], [place] Site . Site : 1980 Study: XRay Extremity Left tib/fib [id number]/29/2017 11:03:05 PM Ordering Physician: Jose Enrique Cronin Final Report: INDICATION: Leg Pain and swelling - no injury TECHNIQUE: Tibia-fibula radiograph 4 views left COMPARISON: None FINDINGS: Bones: No acute fractures or aggressive bone lesions are identified. Joints: The visualized knee and ankle joints are unremarkable. No significant joint effusion is seen. Soft tissue: Severe diffuse subcutaneous edema and swelling is noted throughout the calf. Soft tissue calcifications are present in the anterior proximal calf and medial distal calf. No radiopaque foreign bodies are seen. IMPRESSION: 1. No acute osseous injuries or abnormalities are noted. Dictated by Mathieu Garcia MD @ 07/06/2017 11:34:18 PM Dictated by: Mathieu Garcia MD @ 07/06/2017 23:34:22 (Electronic Signature) Report Signed by Proxy. [facility]
--- NOTE | 2017-07-10 17:30 | CR ---
EXAM DATE: 07/06/17 PATIENT'S AGE: 36 Patient: LEE ANN PERES Facility: [place], [place] Site . Site : 1980 Study: XRay Extremity Right tib/fib [id number]/29/2017 11:03:34 PM Ordering Physician: Jose Enrique Crnoin Final Report: INDICATION: Leg Pain and swelling - no injury TECHNIQUE: Tibia-fibula radiograph 4 views right COMPARISON: None FINDINGS: Bones: No acute fractures or aggressive bone lesions are identified. Joints: The visualized knee and ankle joints are unremarkable. No significant joint effusion is seen. Soft tissue: Severe diffuse subcutaneous edema and swelling is noted throughout the calf. No radiopaque foreign bodies are seen. IMPRESSION: 1. No acute osseous injuries or abnormalities are noted. Dictated by: Mathieu Garcia MD @ 07/06/2017 23:35:12 (Electronic Signature) Report Signed by Proxy. JESSICA
--- NOTE | 2017-07-10 19:00 | CR ---
EXAM DATE: 07/06/17 PATIENT'S AGE: 36 Patient: LEE ANN PERES Facility: [place], [place] Site . Site : 1980 Study: XRay Chest [id number]/30/2017 10:54:10 PM Ordering Physician: KARINA Final Report: INDICATION: SOB TECHNIQUE: Chest 2 views. COMPARISON: None. FINDINGS: Cardiovascular and mediastinum: Heart size and vasculature are normal in caliber and appearance. Mediastinum is within normal limits. Lungs and pleural spaces: Lungs are clear. No sign of infiltrate or mass. No sign of pleural effusion. No pneumothorax. Bones and soft tissues: No significant findings. IMPRESSION: Unremarkable chest. Dictated by: Micheal Kevin MD @ 07/07/2017 23:16:09 (Electronic Signature) Report Signed by Proxy. [facility]
== END 2017-07-09 14:45 | disposition home or self-care (01) ==
LOC: MW.ED 21:44 → MW.MS 23:12
PROVIDERS: ADMIT Internal Medicine; ATTEND Internal Medicine
DX: L03.116 Cellulitis of left lower limb (principal); L03.115 Cellulitis of right lower limb; F17.210 Nicotine dependence, cigarettes, uncomplicated; I67.1 Cerebral aneurysm, nonruptured; F41.9 Anxiety disorder, unspecified; F32.9 Major depressive disorder, single episode, unspecified; F15.21 Other stimulant dependence, in remission; F14.21 Cocaine dependence, in remission; F12.21 Cannabis dependence, in remission; E66.9 Obesity, unspecified; Z68.43 Body mass index [BMI] 50.0-59.9, adult; Z98.890 Other specified postprocedural states
CPT/HCPCS: 36415; 71020; 73590; 80048; 80053; 80202; 80305; 81001; 83605; 85025; 87040; 96365; 99284; A9270; J0696; J1650; J3370; J7040; J7050; 96366; 96367; 96372; 96376; G0378

== ENCOUNTER 2017-08-07 21:36 | Emergency (ER) | payer OTHER ==
--- NOTE | 2017-08-07 21:46 | EDM.PDOC ---
ED HPI GENERAL MEDICAL PROBLEM - General Chief Complaint: Lower Extremity Injury/Pain Stated Complaint: PT LEGS HURT Time Seen by Provider: 08/07/17 21:45 - History of Present Illness INITIAL COMMENTS - FREE TEXT/NARRATIVE: HISTORY AND PHYSICAL: History of present illness: Patient 36-year-old white male presents with concern of possible cellulitis inferior extremities he's been admitted for this in the past he has not followed up and is in the process of establishing care. He denies fever chills nausea vomiting or other complaints Review of systems: As per history of present illness and below otherwise all systems reviewed and negative. Past medical history: As per history of present illness and as reviewed below otherwise noncontributory. Surgical history: As per history of present illness and as reviewed below otherwise noncontributory. Social history: No reported history of drug or alcohol abuse. Family history: As per history of present illness and as reviewed below otherwise noncontributory. Physical exam: HEENT: Atraumatic, normocephalic, pupils reactive, negative for conjunctival pallor or scleral icterus, mucous membranes moist, throat clear, neck supple, nontender, trachea midline. Lungs: Clear to auscultation, breath sounds equal bilaterally, chest nontender. Heart: S1S2, regular, negative for clicks, rubs, or JVD. Abdomen: Soft, nondistended, nontender. Negative for masses or hepatosplenomegaly. Negative for costovertebral tenderness. Pelvis: Stable nontender. Genitourinary: Deferred. Rectal: Deferred. Extremities: Some slight rubor noted bilateral inferior extremities no fluctuance no induration slight increased warmth no cords pain neurovascular exams unremarkable Neuro: Awake, alert, oriented. Cranial nerves II through XII unremarkable. Cerebellum unremarkable. Motor and sensory unremarkable throughout. Exam nonfocal. Diagnostics: None Therapeutics: None Impression: #1 early superficial cellulitis inferior extremities Definitive disposition and diagnosis as appropriate pending reevaluation and review of above. - Related Data Allergies Allergy/AdvReac Type Severity Reaction Status Date / Time No Known Allergies Allergy Verified 07/06/17 21:47 Home Meds: Home Meds Sulfamethoxazole/Trimethoprim [Bactrim Ds Tablet] 1 each PO BID #10 tablet 07/09 [Rx] Past Medical History HEENT History: Reports: None Cardiovascular History: Reports: Aneurysm Other Cardiovascular History: 2008 brain aneurysm Respiratory History: Reports: None Gastrointestinal History: Reports: None Genitourinary History: Reports: None Musculoskeletal History: Reports: Fracture Neurological History: Reports: Other (See Below) Other Neuro History: brain aneurysm, brain mass 1.6cm Psychiatric History: Reports: Addiction, Anxiety, Depression Endocrine/Metabolic History: Reports: Obesity/BMI 30+ - Infectious Disease History Infectious Disease History: Reports: Chicken Pox - Past Surgical History Cardiovascular Surgical History: Reports: None Endocrine Surgical History: Reports: None Neurological Surgical History: Reports: None Social & Family History - Family History Family Medical History: Noncontributory - Tobacco Use Smoking Status *Q: Current Every Day Smoker Years of Tobacco use: 18 Packs/Tins Daily: 1 Second Hand Smoke Exposure: Yes - Caffeine Use Caffeine Use: Reports: Coffee, Energy Drinks, Soda, Tea - Alcohol Use Days Per Week of Alcohol Use: 0 - Recreational Drug Use Recreational Drug Use: Yes Drug Use in Last 12 Months: Yes Recreational Drug Type: Reports: Cocaine, Marijuana/Hashish, Methamphetamine Recreational Drug Use Frequency: Not Used In Over 5 Months Review of Systems - Review of Systems Review Of Systems: ROS reveals no pertinent complaints other than HPI. ED EXAM, GENERAL - Physical Exam Exam: See Below (See dictation) Departure - Departure Time of Disposition: 21:44 Disposition: Home, Self-Care 01 Condition: Good Clinical Impression: Cellulitis - Discharge Information Additional Instructions: The following information is given to patients seen in the emergency department who are being discharged to home. This information is to outline your options for follow-up care. We provide all patients seen in our emergency department with a follow-up referral. The need for follow-up, as well as the timing and circumstances, are variable depending upon the specifics of your emergency department visit. If you don't have a primary care physician on staff, we will provide you with a referral. We always advise you to contact your personal physician following an emergency department visit to inform them of the circumstance of the visit and for follow-up with them and/or the need for any referrals to a consulting specialist. The emergency department will also refer you to a specialist when appropriate. This referral assures that you have the opportunity for followup care with a specialist. All of these measure are taken in an effort to provide you with optimal care, which includes your followup. Under all circumstances we always encourage you to contact your private physician who remains a resource for coordinating your care. When calling for followup care, please make the office aware that this follow-up is from your recent emergency room visit. If for any reason you are refused follow-up, please contact the [facility] emergency department at and asked to speak to the emergency department charge nurse. Bactrim clindamycin as prescribed keep legs elevated follow-up private medical doctor 24-48 hours and return as needed as discussed
== END 2017-08-07 22:07 | disposition home or self-care (01) ==
LOC: MW.ED 21:36
DX: L03.116 Cellulitis of left lower limb (principal); L03.115 Cellulitis of right lower limb; F17.210 Nicotine dependence, cigarettes, uncomplicated
CPT/HCPCS: 99282; 99283

== ENCOUNTER 2018-02-16 22:18 | Observation (INO) | payer MEDICAID ==
[2018-02-16] MEDS ORDERED: Sodium Chloride 0.9% 10 ML Syringe FLUSH PRN (22:22)
[2018-02-16] MEDS ORDERED: Sodium Chloride 0.9% 1,000 ML IV ONE (22:22)
[2018-02-16] MEDS ORDERED: Sodium Chloride 0.9% 2.5 ML Syringe FLUSH PRN ×2 (22:22)
[2018-02-16] MEDS ORDERED: Aspirin 81 MG Tab.Chew PO ONE (22:22)
--- NOTE | 2018-02-16 22:22 | EDM.PDOC ---
ED HPI GENERAL MEDICAL PROBLEM - General Chief Complaint: Cardiovascular Problem Stated Complaint: SHORTNESS OF BREATH Time Seen by Provider: 02/16/18 22:20 Source of Information: Reports: Patient History Limitations: Reports: No Limitations - History of Present Illness INITIAL COMMENTS - FREE TEXT/NARRATIVE: HISTORY AND PHYSICAL: History of present illness: 37-year-old male presenting to the emergency department with chief complaint of shortness of breath starting today. Patient states that today he has felt more short of breath. He denies any chest pain but has felt like he isn't able to catch his breath and has felt some fluttering with his heart. He's never had similar episode. He does smoke. Patient does take medication for high blood pressure. He currently denies any chest pain, palpitations, syncopal episodes or focal neurologic deficits. He sees Dr. Zuniga as his PCP. Review of systems: As per history of present illness and below otherwise all systems reviewed and negative. Past medical history: As per history of present illness and as reviewed below otherwise noncontributory. Surgical history: As per history of present illness and as reviewed below otherwise noncontributory. Social history: No reported history of drug or alcohol abuse. Family history: As per history of present illness and as reviewed below otherwise noncontributory. Physical exam: HEENT: Atraumatic, normocephalic, pupils reactive, negative for conjunctival pallor or scleral icterus, mucous membranes moist, throat clear, neck supple, nontender, trachea midline. Lungs: Clear to auscultation, breath sounds equal bilaterally, chest nontender. Heart: S1S2, regular, negative for clicks, rubs, or JVD. Abdomen: Soft, nondistended, nontender. Negative for masses or hepatosplenomegaly. Negative for costovertebral tenderness. Pelvis: Stable nontender. Genitourinary: Deferred. Rectal: Deferred. Extremities: Atraumatic, negative for cords or calf pain. Neurovascular unremarkable. Neuro: Awake, alert, oriented. Cranial nerves II through XII unremarkable. Cerebellum unremarkable. Motor and sensory unremarkable throughout. Exam nonfocal. Diagnostics: CBC, CMP, troponin, chest x-ray, EKG Therapeutics: 1 L Normal saline Impression: Shortness of breath Plan: Secondary to the patient's history I did call Dr. Conn, hospitalist who agreed with observation telemetry for shortness of breath. Definitive disposition and diagnosis as appropriate pending reevaluation and review of above. - Related Data Allergies Allergy/AdvReac Type Severity Reaction Status Date / Time No Known Allergies Allergy Verified 02/16/18 23:01 Home Meds: Home Meds Sulfamethoxazole/Trimethoprim [Bactrim Ds Tablet] 1 each PO BID #10 tablet 07/09 [Rx] Past Medical History - Past Health History Medical/Surgical History: Denies Medical/Surgical History HEENT History: Reports: None Cardiovascular History: Reports: Aneurysm Other Cardiovascular History: 2007 brain aneurysm Respiratory History: Reports: None Gastrointestinal History: Reports: None Genitourinary History: Reports: None Musculoskeletal History: Reports: Fracture Neurological History: Reports: Other (See Below) Other Neuro History: brain aneurysm, brain mass 1.6cm Psychiatric History: Reports: Addiction, Anxiety, Depression Endocrine/Metabolic History: Reports: Obesity/BMI 30+ - Infectious Disease History Infectious Disease History: Reports: Chicken Pox - Past Surgical History Cardiovascular Surgical History: Reports: None Endocrine Surgical History: Reports: None Neurological Surgical History: Reports: None Social & Family History - Family History Family Medical History: Noncontributory - Caffeine Use Caffeine Use: Reports: Coffee, Energy Drinks, Soda, Tea ED ROS GENERAL - Review of Systems Review Of Systems: ROS reveals no pertinent complaints other than HPI. ED EXAM, GENERAL - Physical Exam Exam: See Below Course - Vital Signs Last Recorded V/S: Last Vital Signs Temp 97.1 F 02/16/18 22:18 Pulse 80 02/16/18 22:18 Resp 26 H 02/16/18 22:18 BP 153/73 H 02/16/18 22:18 Pulse Ox 95 02/16/18 22:18 - Orders/Labs/Meds Orders: Active Orders 24 hr Category Date Time Status Cardiac Monitoring [RC] . DIRECTED Care 02/16/18 22:22 Active EKG Documentation Completion [RC] STAT Care 02/16/18 22:23 Active Oxygen Therapy [RC] ASDIRECTED Care 02/16/18 22:22 Active Pulse Oximetry [RC] ASDIRECTED Care 02/16/18 22:22 Active Chest 1V Frontal [CR] Stat Exams 02/16/18 22:22 Ordered UA W/MICROSCOPIC [URIN] Stat Lab 02/16/18 22:23 Ordered Sodium Chloride 0.9% [Normal Saline] 1,000 ml Med 02/16/18 22:22 Active IV .Bolus Sodium Chloride 0.9% [Saline Flush] Med 02/16/18 22:22 Active 10 ml FLUSH ASDIRECTED PRN Sodium Chloride 0.9% [Saline Flush] Med 02/16/18 22:22 Active 2.5 ml FLUSH ASDIRECTED PRN Sodium Chloride 0.9% [Saline Flush] Med 02/16/18 22:22 Active 2.5 ml FLUSH ASDIRECTED PRN Saline Lock Insert [OM.PC] Stat Oth 02/16/18 22:22 Ordered Medication Orders Sodium Chloride (Normal Saline) 1,000 mls @ 999 mls/hr IV .Bolus ONE Stop: 02/16/18 23:22 Last Admin: 02/16/18 22:31 Dose: 999 mls/hr Sodium Chloride (Saline Flush) 2.5 ml FLUSH ASDIRECTED PRN PRN Reason: Keep Vein Open Sodium Chloride (Saline Flush) 10 ml FLUSH ASDIRECTED PRN PRN Reason: Keep Vein Open Sodium Chloride (Saline Flush) 2.5 ml FLUSH ASDIRECTED PRN PRN Reason: Keep Vein Open Labs: Laboratory Tests 02/16/18 02/16/18 02/16/18 Range/Units 22:25 22:25 22:25 WBC 11.49 H (4.0-11.0) K/uL RBC 5.13 (4.50-5.90) M/uL Hgb 14.7 (13.0-17.0) g/dL Hct 43.6 (38.0-50.0) % MCV 85.0 (80.0-98.0) fL MCH 28.7 (27.0-32.0) pg MCHC 33.7 (31.0-37.0) g/dL RDW Std Deviation 45.4 (28.0-62.0) fl RDW Coeff of Vinh 15 (11.0-15.0) % Plt Count 201 (150-400) K/uL MPV 9.90 (7.40-12.00) fL Neut % (Auto) 63.8 (48.0-80.0) % Lymph % (Auto) 27.0 (16.0-40.0) % Hale % (Auto) 4.9 (0.0-15.0) % Eos % (Auto) 4.1 (0.0-7.0) % Baso % (Auto) 0.2 (0.0-1.5) % Neut # (Auto) 7.3 H (1.4-5.7) K/uL Lymph # (Auto) 3.1 H (0.6-2.4) K/uL Hale # (Auto) 0.6 (0.0-0.8) K/uL Eos # (Auto) 0.5 (0.0-0.7) K/uL Baso # (Auto) 0.0 (0.0-0.1) K/uL Nucleated RBC % 0.0 /100WBC Nucleated RBCs # 0 K/uL INR 1.06 D-Dimer, Quantitative 0.36 (0.0-0.52) mg/LFEU Sodium 137 (136-148) mmol/L Potassium 3.7 (3.5-5.1) mmol/L Chloride 100 (98-107) mmol/L Carbon Dioxide 30.7 (21.0-32.0) mmol/L BUN 9 (7.0-18.0) mg/dL Creatinine 0.8 (0.8-1.3) mg/dL Est Cr Clr Drug Dosing TNP Estimated GFR (MDRD) > 60.0 ml/min Glucose 343 H (74-106) mg/dL Calcium 8.6 (8.5-10.1) mg/dL Total Bilirubin 0.3 (0.2-1.0) mg/dL AST 27 (15-37) IU/L ALT 53 (14-63) IU/L Alkaline Phosphatase 79 (46-116) U/L Troponin I < 0.050 (0.000-0.056) ng/mL Total Protein 6.9 (6.4-8.2) g/dL Albumin 3.0 L (3.4-5.0) g/dL Globulin 3.9 H (2.0-3.5) g/dL Albumin/Globulin Ratio 0.8 L (1.3-2.8) Meds: Medications Generic Name Dose Route Start Last Admin Trade Name Freq PRN Reason Stop Dose Admin Sodium Chloride 1,000 mls @ 999 mls/hr 02/16/18 22:22 02/16/18 22:31 Normal Saline IV 02/16/18 23:22 999 mls/hr .Bolus ONE Administration Sodium Chloride 2.5 ml 02/16/18 22:22 Saline Flush FLUSH ASDIRECTED PRN Keep Vein Open Sodium Chloride 10 ml 02/16/18 22:22 Saline Flush FLUSH ASDIRECTED PRN Keep Vein Open Sodium Chloride 2.5 ml 02/16/18 22:22 Saline Flush FLUSH ASDIRECTED PRN Keep Vein Open Discontinued Medications Generic Name Dose Route Start Last Admin Trade Name Geremias PRN Reason Stop Dose Admin Aspirin 324 mg 02/16/18 22:22 02/16/18 22:32 Aspirin PO 02/16/18 22:23 324 mg ONETIME ONE Administration Departure - Departure Time of Disposition: 23:11 Disposition: Admitted As Inpatient 64 Clinical Impression: Shortness of breath Forms: ED Department Discharge - My Orders Last 24 Hours: My Active Orders 02/16/18 22:22 Cardiac Monitoring [RC] . DIRECTED Oxygen Therapy [RC] ASDIRECTED Pulse Oximetry [RC] ASDIRECTED Chest 1V Frontal [CR] Stat Sodium Chloride 0.9% [Normal Saline] 1,000 ml IV .Bolus Sodium Chloride 0.9% [Saline Flush] 10 ml FLUSH ASDIRECTED PRN Sodium Chloride 0.9% [Saline Flush] 2.5 ml FLUSH ASDIRECTED PRN Sodium Chloride 0.9% [Saline Flush] 2.5 ml FLUSH ASDIRECTED PRN Saline Lock Insert [OM.PC] Stat 02/16/18 22:23 EKG Documentation Completion [RC] STAT UA W/MICROSCOPIC [URIN] Stat - Assessment/Plan Last 24 Hours: My Active Orders 02/16/18 22:22 Cardiac Monitoring [RC] . DIRECTED Oxygen Therapy [RC] ASDIRECTED Pulse Oximetry [RC] ASDIRECTED Chest 1V Frontal [CR] Stat Sodium Chloride 0.9% [Normal Saline] 1,000 ml IV .Bolus Sodium Chloride 0.9% [Saline Flush] 10 ml FLUSH ASDIRECTED PRN Sodium Chloride 0.9% [Saline Flush] 2.5 ml FLUSH ASDIRECTED PRN Sodium Chloride 0.9% [Saline Flush] 2.5 ml FLUSH ASDIRECTED PRN Saline Lock Insert [OM.PC] Stat 02/16/18 22:23 EKG Documentation Completion [RC] STAT UA W/MICROSCOPIC [URIN] Stat
[2018-02-16 22:57] LABS: CHLORIDE,CL 100 mmol/L (98-107); SODIUM,NA 137 mmol/L (136-148)
[2018-02-17] MEDS ORDERED: traMADol 50 MG Tab PO PRN (00:09)
[2018-02-17] MEDS ORDERED: Albuterol/Ipratropium 3.0-0.5 MG/3 ML Neb Soln NEB PRN (00:10)
[2018-02-17] MEDS ORDERED: Pneumococcal Polyvalent-23 Vaccine 0.5 ML SDV IM ONE (00:24)
[2018-02-17] MEDS: Insulin Aspart 100 Units/ML 3 ML Pen SUBCUT SCH ×2 (07:27→12:40)
--- NOTE | 2018-02-17 09:00 | PCM.HP ---
H&P History of Present Illness - General Date of Service: 02/17/18 Admit Problem/Dx: Admission Diagnosis/Problem Admission Diagnosis/Problem Shortness of breath Source of Information: Patient - History of Present Illness Initial Comments - Free Text/Narative: this is a 37-year old Obese Male that was admitted secondary to shortness of breath and ACS rule out. Patient denies any chest pain, he stated rose he was having shortness of breath without any discomfort and came to the ER for evaluation Do to the patient's obesity and shortness of breath there was a concern for possible cardiac involvement and the patient was admitted for ACS rule out. Patient states that he does have severe sleep apnea, his blood sugar level was elevated however patient states that he has not had a diagnosis of type 2 diabetes. It does appear based on history and physical that this patient likely has metabolic syndrome. There were no EKG changes,and his troponins have been negative so far. Bilateral Leg Pain Score (Numeric/FACES): 2 - Related Data Allergies/Adverse Reactions: Allergies Allergy/AdvReac Type Severity Reaction Status Date / Time No Known Allergies Allergy Verified 02/16/18 23:01 Home Medications: Home Meds Losartan [Cozaar] 0 mg PO DAILY 02/16/18 [History] traMADol HCl [Tramadol HCl] 100 mg PO Q8H 02/16/18 [History] traZODone HCl [Trazodone HCl] 100 mg PO BEDTIME 02/16/18 [History] Past Medical History - Past Health History Medical/Surgical History: Denies Medical/Surgical History HEENT History: Reports: None Other HEENT History: wears glasses Cardiovascular History: Reports: Aneurysm, Other (See Below) Other Cardiovascular History: 2008 brain aneurysm. 1.6cm brain mass Respiratory History: Reports: None, Sleep Apnea Other Respiratory History: pt states he's not on inhaler for asthma; preparing to be on cpap Gastrointestinal History: Reports: GERD Genitourinary History: Reports: None Musculoskeletal History: Reports: Back Pain, Chronic, Fracture, Other (See Below ) Other Musculoskeletal History: chronic leg and back pain Neurological History: Reports: Other (See Below) Other Neuro History: brain aneurysm, brain mass 1.6cm Psychiatric History: Reports: Addiction, Anxiety, Depression Endocrine/Metabolic History: Reports: Obesity/BMI 30+ Dermatologic History: Reports: Cellulitis - Infectious Disease History Infectious Disease History: Reports: Chicken Pox - Past Surgical History Cardiovascular Surgical History: Reports: None Endocrine Surgical History: Reports: None Neurological Surgical History: Reports: None Social & Family History - Family History Family Medical History: Noncontributory Cardiac: Reports: Heart Failure Respiratory: Reports: Asthma Endocrine/Metabolic: Reports: Diabetes, type II Oncologic: Reports: Lung - Tobacco Use Smoking Status *Q: Current Every Day Smoker Years of Tobacco use: 26 Packs/Tins Daily: 0.2 Tobacco Use Comment: 1-3 cigarettes daily. Also uses Vapor - Caffeine Use Caffeine Use: Reports: Coffee, Soda - Alcohol Use Date of Last Drink: 01/05/18 - Recreational Drug Use Recreational Drug Use: No Other Recreational Drug Type: Hx of Meth use H&P Review of Systems - Review of Systems: Review Of Systems: ROS reveals no pertinent complaints other than HPI. Exam - Exam Exam: See Below - Vital Signs Vital Signs: Last Vital Signs Temp 36.7 C 02/17/18 08:00 Pulse 73 02/17/18 08:00 Resp 20 02/17/18 08:00 BP 135/63 02/17/18 08:00 Pulse Ox 94 L 02/17/18 08:00 Weight: 187.5 kg - Exam Quality Assessment: Other (morbid obesity) General: Alert, Oriented, Cooperative HEENT: Conjunctiva Clear, EOMI Neck: Supple, Trachea Midline Lungs: Clear to Auscultation, Normal Respiratory Effort Cardiovascular: Regular Rate, Regular Rhythm GI/Abdominal Exam: Normal Bowel Sounds Extremities: Normal Inspection, Normal Range of Motion - Patient Data Lab Results Last 24 hrs: Laboratory Results - last 24 hr 02/16/18 02/16/18 02/16/18 Range/Units 22:25 22:25 22:25 WBC 11.49 H (4.0-11.0) K/uL RBC 5.13 (4.50-5.90) M/uL Hgb 14.7 (13.0-17.0) g/dL Hct 43.6 (38.0-50.0) % MCV 85.0 (80.0-98.0) fL MCH 28.7 (27.0-32.0) pg MCHC 33.7 (31.0-37.0) g/dL RDW Std Deviation 45.4 (28.0-62.0) fl RDW Coeff of Vinh 15 (11.0-15.0) % Plt Count 201 (150-400) K/uL MPV 9.90 (7.40-12.00) fL Neut % (Auto) 63.8 (48.0-80.0) % Lymph % (Auto) 27.0 (16.0-40.0) % [place] % (Auto) 4.9 (0.0-15.0) % Eos % (Auto) 4.1 (0.0-7.0) % Baso % (Auto) 0.2 (0.0-1.5) % Neut # (Auto) 7.3 H (1.4-5.7) K/uL Lymph # (Auto) 3.1 H (0.6-2.4) K/uL [place] # (Auto) 0.6 (0.0-0.8) K/uL Eos # (Auto) 0.5 (0.0-0.7) K/uL Baso # (Auto) 0.0 (0.0-0.1) K/uL Nucleated RBC % 0.0 /100WBC Nucleated RBCs # 0 K/uL INR 1.06 D-Dimer, Quantitative 0.36 (0.0-0.52) mg/LFEU Sodium 137 (136-148) mmol/L Potassium 3.7 (3.5-5.1) mmol/L Chloride 100 (98-107) mmol/L Carbon Dioxide 30.7 (21.0-32.0) mmol/L BUN 9 (7.0-18.0) mg/dL Creatinine 0.8 (0.8-1.3) mg/dL Est Cr Clr Drug Dosing TNP Estimated GFR (MDRD) > 60.0 ml/min Glucose 343 H (74-106) mg/dL POC Glucose (60-110) mg/dL Calcium 8.6 (8.5-10.1) mg/dL Total Bilirubin 0.3 (0.2-1.0) mg/dL AST 27 (15-37) IU/L ALT 53 (14-63) IU/L Alkaline Phosphatase 79 (46-116) U/L Troponin I < 0.050 (0.000-0.056) ng/mL Total Protein 6.9 (6.4-8.2) g/dL Albumin 3.0 L (3.4-5.0) g/dL Globulin 3.9 H (2.0-3.5) g/dL Albumin/Globulin Ratio 0.8 L (1.3-2.8) Urine Color Urine Appearance Urine pH (5.0-8.0) Ur Specific [place] (1.001-1.035) Urine Protein (NEGATIVE) mg/dL Urine Glucose (UA) (NEGATIVE) mg/dL Urine Ketones (NEGATIVE) mg/dL Urine Occult Blood (NEGATIVE) Urine Nitrite (NEGATIVE) Urine Bilirubin (NEGATIVE) Urine Urobilinogen (<2.0) EU/dL Ur Leukocyte Esterase (NEGATIVE) Urine RBC (0-2/HPF) Urine WBC (0-5/HPF) Ur Epithelial Cells (NONE-FEW) Urine Bacteria (NEGATIVE) 02/16/18 02/17/18 02/17/18 Range/Units 23:50 04:45 06:43 WBC (4.0-11.0) K/uL RBC (4.50-5.90) M/uL Hgb (13.0-17.0) g/dL Hct (38.0-50.0) % MCV (80.0-98.0) fL MCH (27.0-32.0) pg MCHC (31.0-37.0) g/dL RDW Std Deviation (28.0-62.0) fl RDW Coeff of Vinh (11.0-15.0) % Plt Count (150-400) K/uL MPV (7.40-12.00) fL Neut % (Auto) (48.0-80.0) % Lymph % (Auto) (16.0-40.0) % [place] % (Auto) (0.0-15.0) % Eos % (Auto) (0.0-7.0) % Baso % (Auto) (0.0-1.5) % Neut # (Auto) (1.4-5.7) K/uL Lymph # (Auto) (0.6-2.4) K/uL [place] # (Auto) (0.0-0.8) K/uL Eos # (Auto) (0.0-0.7) K/uL Baso # (Auto) (0.0-0.1) K/uL Nucleated RBC % /100WBC Nucleated RBCs # K/uL INR D-Dimer, Quantitative (0.0-0.52) mg/LFEU Sodium (136-148) mmol/L Potassium (3.5-5.1) mmol/L Chloride (98-107) mmol/L Carbon Dioxide (21.0-32.0) mmol/L BUN (7.0-18.0) mg/dL Creatinine (0.8-1.3) mg/dL Est Cr Clr Drug Dosing Estimated GFR (MDRD) ml/min Glucose (74-106) mg/dL POC Glucose 189 H (60-110) mg/dL Calcium (8.5-10.1) mg/dL Total Bilirubin (0.2-1.0) mg/dL AST (15-37) IU/L ALT (14-63) IU/L Alkaline Phosphatase (46-116) U/L Troponin I < 0.050 (0.000-0.056) ng/mL Total Protein (6.4-8.2) g/dL Albumin (3.4-5.0) g/dL Globulin (2.0-3.5) g/dL Albumin/Globulin Ratio (1.3-2.8) Urine Color YELLOW Urine Appearance CLEAR Urine pH 7.0 (5.0-8.0) Ur Specific [place] 1.015 (1.001-1.035) Urine Protein NEGATIVE (NEGATIVE) mg/dL Urine Glucose (UA) >=1000 (NEGATIVE) mg/dL Urine Ketones NEGATIVE (NEGATIVE) mg/dL Urine Occult Blood NEGATIVE (NEGATIVE) Urine Nitrite NEGATIVE (NEGATIVE) Urine Bilirubin NEGATIVE (NEGATIVE) Urine Urobilinogen 1.0 (<2.0) EU/dL Ur Leukocyte Esterase NEGATIVE (NEGATIVE) Urine RBC 0-1 (0-2/HPF) Urine WBC 0-1 (0-5/HPF) Ur Epithelial Cells RARE (NONE-FEW) Urine Bacteria FEW (NEGATIVE) Result Diagrams: 02/16/18 22:25 02/16/18 22:25 - Problem List (1) Shortness of breath SNOMED Code(s): 065978891 ICD Code: R06.02 - SHORTNESS OF BREATH Status: Acute Current Visit: Yes Problem List Initiated/Reviewed/Updated: Yes Orders Last 24hrs: Active Orders 24 hr Category Date Time Status Admission Status [Patient Status] [ADT] Stat ADT 02/16/18 23:12 Active Blood Glucose Check, Bedside [RC] TIDMEALS Care 02/17/18 07:00 Active RT Aerosol Therapy [RC] ASDIRECTED Care 02/17/18 00:10 Active Telemetry Monitoring [Cardiac Monitoring] [RC] . Care 02/16/18 22:22 Active DIRECTED [employer] [employer] Diet [DIET] Diet 02/17/18 Breakfast Active Chest 1V Frontal [CR] Stat Exams 02/16/18 22:22 Taken TROPONIN I [CHEM] Routine Lab 02/17/18 10:20 Ordered UA W/MICROSCOPIC [URIN] Stat Lab 02/16/18 23:50 Ordered Albuterol/Ipratropium [DuoNeb 3.0-0.5 MG/3 ML] Med 02/17/18 00:10 Active 3 ml NEB Q6H PRN Insulin Aspart [NovoLOG] Med 02/17/18 07:30 Active See Protocol SUBCUT TIDAC Sodium Chloride 0.9% [Saline Flush] Med 02/16/18 22:22 Active 10 ml FLUSH ASDIRECTED PRN Sodium Chloride 0.9% [Saline Flush] Med 02/16/18 22:22 Active 2.5 ml FLUSH ASDIRECTED PRN Sodium Chloride 0.9% [Saline Flush] Med 02/16/18 22:22 Active 2.5 ml FLUSH ASDIRECTED PRN traMADol [Ultram] Med 02/17/18 00:09 Active 100 mg PO BEDTIME PRN Saline Lock Insert [OM.PC] Stat Oth 02/16/18 22:22 Ordered Medication Orders Albuterol/Ipratropium (Duoneb 3.0-0.5 Mg/3 Ml) 3 ml NEB Q6H PRN PRN Reason: Shortness of Breath Insulin Aspart (Novolog) 0 unit SUBCUT TIDAC JEFFREY; Protocol Last Admin: 02/17/18 07:27 Dose: 1 unit Sodium Chloride (Saline Flush) 2.5 ml FLUSH ASDIRECTED PRN PRN Reason: Keep Vein Open Sodium Chloride (Saline Flush) 10 ml FLUSH ASDIRECTED PRN PRN Reason: Keep Vein Open Sodium Chloride (Saline Flush) 2.5 ml FLUSH ASDIRECTED PRN PRN Reason: Keep Vein Open Tramadol HCl (Ultram) 100 mg PO BEDTIME PRN PRN Reason: Pain Last Admin: 02/17/18 01:03 Dose: 100 mg Assessment/Plan Comment:: This is a 37 year old obese male admitted for shortness of breath and acute coronary syndrome rule out. Troponins 3, blood sugar checks as well as hemoglobin A1c to assess for metabolic syndrome and possible Type 2 DM. If trops, based on Hac1 patient will dc'd home with DM2 Meds and follow up with PCP. Discharge Summary Date of admission: 02/17/18 Date of discharge: 02/17/18 Admitting diagnosis: #1. shortness of breath in the setting of severe obesity, aCS rule out #2. Likely metabolic syndrome, hemoglobin A1c for type 2 diabetes assessment #3. PMH of Severe Sleep Apnea #4. #5. Discharge diagnoses: #1. ACS ruled out, patient no longer SOB #2. Metabolic syndrome with a A1c of 9 which means patient has type 2 DM, and Severe Sleep Apnea #3. #4. #5. Consultations: None Procedures: None Hospitalization course: patient was admitted overnight for observation, he was not short of breath throughout his stay, he did not have any chest pain or discomfort. His troponins were negative 3, he did have a hemoglobin A1c of 9 which means the patient does have a diagnosis of type 2 diabetes. Given his severe sleep apnea and morbid obesitythe patient likely is suffering from metabolic syndrome and will require intense lifestyle changes and weight loss along with medical intervention for disease process management and control. patient was stable and given ACS is ruled out, he would like to be discharged home with a PCP follow-up. Disposition on discharge:home Condition on discharge: Stable
--- NOTE | 2018-02-18 17:39 | CR ---
EXAM DATE: 02/16/18 PATIENT'S AGE: 37 Patient: LEE ANN PERES Facility: [place], [place] Site . Site : [id number] Study: XRay Chest [id number] 11:14:12 PM Ordering Physician: Doctor Mayen Final Report: CHEST 1 VIEW AP INDICATION: Shortness of breath. IMPRESSION: Normal heart size and vascular pattern. Lungs are clear. No pneumothorax or pleural abnormality. ECG Monitor leads projected over the patient. Dictated by Rob Dillon MD @ Feb 16 2018 11:15PM (Electronic Signature) Report Signed by Proxy. JESSICA
== END 2018-02-17 12:50 | disposition home or self-care (01) ==
LOC: MW.ED 22:18 → MW.MS 23:12
PROVIDERS: ADMIT Internal Medicine; ATTEND Internal Medicine
DX: R06.02 Shortness of breath (principal); G47.39 Other sleep apnea; E11.9 Type 2 diabetes mellitus without complications; J45.909 Unspecified asthma, uncomplicated; I50.9 Heart failure, unspecified; E66.01 Morbid (severe) obesity due to excess calories; F17.210 Nicotine dependence, cigarettes, uncomplicated; K21.9 Gastro-esophageal reflux disease without esophagitis; F41.9 Anxiety disorder, unspecified; F32.9 Major depressive disorder, single episode, unspecified; Z86.79 Personal history of other diseases of the circulatory system; Z79.899 Other long term (current) drug therapy
CPT/HCPCS: 36415; 71045; 80053; 81001; 82962; 83036; 84484; 85025; 85379; 85610; 93005; 96360; 99285; A9270; G0378; J1815; J7040; 99284

== ENCOUNTER 2018-11-19 14:11 | Emergency (ER) | payer OTHER ==
[2018-11-19] MEDS ORDERED: Ketorolac 60 MG/2 ML SDV IM ONE (14:27)
[2018-11-19] MEDS ORDERED: Lidocaine 2% Viscous Solution 15 ML Cup PO ONE (14:28)
[2018-11-19] MEDS ORDERED: Benzocaine 20% Topical Spray UD MUCMEM ONE (14:28)
--- NOTE | 2018-11-19 14:38 | EDM.PDOC ---
ED HPI GENERAL MEDICAL PROBLEM - General Chief Complaint: ENT Problem Stated Complaint: GUM INFECTION Time Seen by Provider: 11/19/18 14:20 Source of Information: Reports: Patient History Limitations: Reports: No Limitations - History of Present Illness INITIAL COMMENTS - FREE TEXT/NARRATIVE: Presents reporting dental pain. The patient states that he has had dental problems for some time he cannot afford to get his teeth fixed. In the last couple of weeks he developed an abscess around a broken off tooth in the left upper quadrant. He recently incised the abscess and "a pile of fluid came out" the swelling and pain remain--now he is swollen all the way up his cheek to his lower eyelid, Tooth/Teeth Pain Score (Numeric/FACES): 10 - Related Data Allergies Allergy/AdvReac Type Severity Reaction Status Date / Time No Known Allergies Allergy Verified 11/19/18 14:25 Home Meds: Home Meds Losartan [Cozaar] 0 mg PO DAILY 02/16/18 [History] traMADol HCl [Tramadol HCl] 100 mg PO Q8H 02/16/18 [History] traZODone HCl [Trazodone HCl] 100 mg PO BEDTIME 02/16/18 [History] Aspirin [Ecotrin] 81 mg PO DAILY 11/19/18 [History] Clindamycin HCl 1 cap PO TID #30 capsule 11/19/18 [Rx] Gabapentin [Neurontin] 600 mg PO TID 11/19/18 [History] Phentermine HCl 1 cap PO DAILY 11/19/18 [History] metFORMIN HCl [Metformin HCl] 500 mg PO BID 11/19/18 [History] Past Medical History - Past Health History Medical/Surgical History: Denies Medical/Surgical History HEENT History: Reports: None Other HEENT History: wears glasses Cardiovascular History: Reports: Aneurysm, Other (See Below) Other Cardiovascular History: 2008 brain aneurysm. 1.6cm brain mass Respiratory History: Reports: None, Sleep Apnea Other Respiratory History: pt states he's not on inhaler for asthma; preparing to be on cpap Gastrointestinal History: Reports: GERD Genitourinary History: Reports: None Musculoskeletal History: Reports: Back Pain, Chronic, Fracture, Other (See Below ) Other Musculoskeletal History: chronic leg and back pain Neurological History: Reports: Headaches, Chronic, Neuropathy, Diabetic, Other ( See Below) Other Neuro History: brain aneurysm, brain mass 1.6cm Psychiatric History: Reports: Addiction, Anxiety, Depression Endocrine/Metabolic History: Reports: Diabetes, Type II, Obesity/BMI 30+ Dermatologic History: Reports: Cellulitis - Infectious Disease History Infectious Disease History: Reports: Chicken Pox - Past Surgical History Cardiovascular Surgical History: Reports: None Endocrine Surgical History: Reports: None Neurological Surgical History: Reports: None Social & Family History - Family History Family Medical History: Noncontributory Cardiac: Reports: Heart Failure Respiratory: Reports: Asthma Endocrine/Metabolic: Reports: Diabetes, type II Oncologic: Reports: Lung - Tobacco Use Smoking Status *Q: Former Smoker Used Tobacco, but Quit: Yes Month/Year Tobacco Last Used: 09/2018 - Caffeine Use Caffeine Use: Reports: Coffee, Energy Drinks - Recreational Drug Use Recreational Drug Use: No ED ROS ENT - Review of Systems Review Of Systems: ROS reveals no pertinent complaints other than HPI. ED EXAM, ENT - Physical Exam Exam: See Below Exam Limited By: No Limitations General Appearance: Alert, Moderate Distress (Due to pain) Ears: Normal External Exam, Normal TMs Nose: Normal Inspection Mouth/Throat: Other (Numerous teeth with a large decays and several broken off to the gum line in the left upper quadrant is pustule in the gum. Exquisite tenderness. Swelling up into the suborbital area.) Head: Atraumatic, Normocephalic Neck: Normal Inspection Respiratory/Chest: No Respiratory Distress, Lungs Clear Cardiovascular: Normal Peripheral Pulses, Regular Rate, Rhythm, No Murmur Neurological: Alert, Oriented Psychiatric: Normal Affect, Normal Mood Skin: Warm, Dry, Intact, Normal Color, No Rash Lymphatic: No Adenopathy Course - Vital Signs Last Recorded V/S: Last Vital Signs Temp 35.9 C 11/19/18 14:20 Pulse 108 H 11/19/18 14:20 Resp 20 11/19/18 14:20 BP 147/70 H 11/19/18 14:20 Pulse Ox 90 L 11/19/18 14:20 - Orders/Labs/Meds Meds: Medications Discontinued Medications Generic Name Dose Route Start Last Admin Trade Name Freq PRN Reason Stop Dose Admin Benzocaine 2 each 11/19/18 14:28 Hurricaine One 20% MUCMEM 11/19/18 14:29 ONETIME ONE Ketorolac Tromethamine 60 mg 11/19/18 14:27 Toradol IM 11/19/18 14:28 ONETIME ONE Lidocaine HCl 15 ml 11/19/18 14:28 Xylocaine 2% Viscous PO 11/19/18 14:29 ONETIME ONE Departure - Departure Time of Disposition: 14:40 Disposition: Home, Self-Care 01 Condition: Fair Clinical Impression: Dental abscess - Discharge Information Prescriptions: Clindamycin HCl 1 cap PO TID #30 capsule Referrals: PCP,None [Primary Care Provider] - Additional Instructions: 1. Follow-up with dentist as soon as possible. This problem will soon recur without definitive management. 2. Take your antibiotic as directed 3. Dental balls: Place one ball over affected tooth and bite down for 10 minutes every 2 hours. 4. Aleve 2 tabs a.m. and p.m. or ibuprofen 2-3 tabs every 8 hours as needed for pain
== END 2018-11-19 15:14 | disposition home or self-care (01) ==
LOC: MW.ED 14:11
DX: K04.7 Periapical abscess without sinus (principal); E11.9 Type 2 diabetes mellitus without complications; F41.9 Anxiety disorder, unspecified; F32.9 Major depressive disorder, single episode, unspecified; K21.9 Gastro-esophageal reflux disease without esophagitis; Z79.84 Long term (current) use of oral hypoglycemic drugs; Z79.82 Long term (current) use of aspirin; Z79.899 Other long term (current) drug therapy
CPT/HCPCS: 96372; 99282; A9270; J1885

== ENCOUNTER 2018-11-20 12:27 | Emergency (ER) | payer MEDICAID, OTHER ==
--- NOTE | 2018-11-20 13:03 | EDM.PDOC ---
ED HPI GENERAL MEDICAL PROBLEM - General Chief Complaint: General Stated Complaint: ARM NUMBNESS AND TWITCHING Time Seen by Provider: 11/20/18 12:37 Source of Information: Reports: Patient History Limitations: Reports: No Limitations - History of Present Illness INITIAL COMMENTS - FREE TEXT/NARRATIVE: HISTORY AND PHYSICAL: History of present illness: Patient is a 38-year-old male who presents to the emergency room with complaints of muscle twitching and tingling sensation to his upper extremities. Patient reports he was seen yesterday for a dental abscess and was placed on antibiotic and given tramadol for pain management. He states "the pain was so unbearable" that he had taken multiple doses of his gabapentin x 3 days and tramadol x 24 hours (unscheduled) to help alleviate his discomfort. Shortly after he started to notice his symptoms. As he has now went back to his normal dosing his symptoms are resolving. He states he is concerned as he does have a history of a benign brain mass. He denies any injury, trauma, or falls. Patient denies any fever, chills, headache, change in vision, syncope or near syncope. Denies any chest pain, back pain, shortness of breath or cough. Denies any abdominal pain, nausea, vomiting, diarrhea, constipation or dysuria. Has not noted any blood in urine or stool. Patient has been eating and drinking appropriately. Review of systems: As per history of present illness and below otherwise all systems reviewed and negative. Past medical history: As per history of present illness and as reviewed below otherwise noncontributory. Surgical history: As per history of present illness and as reviewed below otherwise noncontributory. Social history: See social history for further information Family history: As per history of present illness and as reviewed below otherwise noncontributory. Physical exam: General: Well-nourished 38-year-old male. Alert and oriented. Nontoxic appearing and in no acute distress. HEENT: Atraumatic, normocephalic, pupils equal and reactive bilaterally, negative for conjunctival pallor or scleral icterus, mucous membranes moist, TMs normal bilaterally, throat clear, neck supple, nontender, trachea midline. No drooling or trismus noted. No meningeal signs. No hot potato voice noted. Lungs: Slightly diminished to auscultation, breath sounds equal bilaterally, chest nontender. Heart: S1S2, regular rate and rhythm without overt murmur Abdomen: Soft, nondistended, obese, nontender. Negative for masses. Negative for costovertebral tenderness. Pelvis: Stable nontender. Genitourinary: Deferred. Rectal: Deferred. Skin: Intact, warm, dry. No lesions or rashes noted. Extremities: Atraumatic, moves all extremities per self without difficulty or deficits, negative for cords or calf pain. Neurovascular unremarkable. Neuro: Awake, alert, oriented. Cranial nerves II through XII unremarkable. Cerebellum unremarkable. Motor and sensory unremarkable throughout. Exam nonfocal. Notes: Patient has no neurological deficits. No weakness noted. He is able to firmly grasp my hands bilaterally. States he "just wanted to be sure" that this hand nothing to do with his previous brain mass. Patient's oxygen saturation is 88% on room air. Patient reports that he does have severe sleep apnea and does use oxygen at home before bed and in the mornings. He states he had not used his oxygen this morning and believes that is associated with his low oxygen sat today. He declines a chest x-ray. We discussed doing lab work and a head CT which she would like to proceed with. Head CT shows no acute intracranial findings. There is a stable 110.8 cm interventricular nodule along the anterior aspect of the caudate lobe. Patient does have the leukocytosis which I am going to treat with Zpack as I believe this is related to his low oxygen saturation, treat as bronchitis. He continues to to decline the CXR. Supportive care measures were reviewed and discussed. Voices understanding and is agreeable to plan of care. Denies any further questions or concerns at this time. Diagnostics: CBC, CMP, Head CT Therapeutics: Oxygen, Duo Neb Prescription: Zpack Medrol Dosepak Impression: Paraesthesia Plan: 1. Please take your medications as directed. They can be very harmful to over take the medications your prescribed. 2. Follow-up with your primary care provider as we discussed. Return to the ED as needed and as discussed. Definitive disposition and diagnosis as appropriate pending reevaluation and review of above. - Related Data Allergies Allergy/AdvReac Type Severity Reaction Status Date / Time No Known Allergies Allergy Verified 11/19/18 14:25 Home Meds: Home Meds Losartan [Cozaar] 0 mg PO DAILY 02/16/18 [History] traMADol HCl [Tramadol HCl] 100 mg PO Q8H 02/16/18 [History] traZODone HCl [Trazodone HCl] 200 mg PO BEDTIME 02/16/18 [History] Aspirin [Ecotrin] 81 mg PO DAILY 11/19/18 [History] Clindamycin HCl 1 cap PO TID #30 capsule 11/19/18 [Rx] Gabapentin [Neurontin] 600 mg PO TID 11/19/18 [History] Phentermine HCl 1 cap PO DAILY 11/19/18 [History] metFORMIN HCl [Metformin HCl] 500 mg PO BID 11/19/18 [History] Past Medical History - Past Health History Medical/Surgical History: Denies Medical/Surgical History HEENT History: Reports: None Other HEENT History: wears glasses Cardiovascular History: Reports: Aneurysm, Other (See Below) Other Cardiovascular History: 2008 brain aneurysm. 1.6cm brain mass Respiratory History: Reports: None, Sleep Apnea Other Respiratory History: pt states he's not on inhaler for asthma; preparing to be on cpap Gastrointestinal History: Reports: GERD Genitourinary History: Reports: None Musculoskeletal History: Reports: Back Pain, Chronic, Fracture, Other (See Below ) Other Musculoskeletal History: chronic leg and back pain Neurological History: Reports: Headaches, Chronic, Neuropathy, Diabetic, Other ( See Below) Other Neuro History: brain aneurysm, brain mass 1.6cm Psychiatric History: Reports: Addiction, Anxiety, Depression Endocrine/Metabolic History: Reports: Diabetes, Type II, Obesity/BMI 30+ Dermatologic History: Reports: Cellulitis - Infectious Disease History Infectious Disease History: Reports: Chicken Pox - Past Surgical History Cardiovascular Surgical History: Reports: None Endocrine Surgical History: Reports: None Neurological Surgical History: Reports: None Social & Family History - Family History Family Medical History: Noncontributory Cardiac: Reports: Heart Failure Respiratory: Reports: Asthma Endocrine/Metabolic: Reports: Diabetes, type II Oncologic: Reports: Lung - Tobacco Use Smoking Status *Q: Current Every Day Smoker Years of Tobacco use: 25 Packs/Tins Daily: 1 - Caffeine Use Caffeine Use: Reports: Coffee, Energy Drinks - Recreational Drug Use Recreational Drug Use: No ED ROS GENERAL - Review of Systems Review Of Systems: ROS reveals no pertinent complaints other than HPI. ED EXAM, GENERAL - Physical Exam Exam: See Below (See dictation) Course - Vital Signs Last Recorded V/S: Last Vital Signs Temp 98 F 11/20/18 12:47 Pulse 101 H 11/20/18 15:12 Resp 18 11/20/18 15:12 BP 104/62 11/20/18 15:12 Pulse Ox 85 L 11/20/18 15:12 - Orders/Labs/Meds Orders: Active Orders 24 hr Category Date Time Status RT Aerosol Therapy [RC] ASDIRECTED Care 11/20/18 13:09 Active Labs: Laboratory Tests 11/20/18 11/20/18 Range/Units 14:14 14:14 WBC 14.85 H (4.0-11.0) K/uL RBC 5.13 (4.50-5.90) M/uL Hgb 14.3 (13.0-17.0) g/dL Hct 44.5 (38.0-50.0) % MCV 86.7 (80.0-98.0) fL MCH 27.9 (27.0-32.0) pg MCHC 32.1 (31.0-37.0) g/dL RDW Std Deviation 50.4 (28.0-62.0) fl RDW Coeff of Vinh 16 H (11.0-15.0) % Plt Count 209 (150-400) K/uL MPV 9.80 (7.40-12.00) fL Add Manual Diff YES Neutrophils % (Manual) 66 (48.0-80.0) % Band Neutrophils % 2 % Lymphocytes % (Manual) 25 (16.0-40.0) % Monocytes % (Manual) 6 (0.0-15.0) % Eosinophils % (Manual) 1 (0.0-7.0) % Nucleated RBC % 0.0 /100WBC Absolute Seg Neuts 9.8 H (1.4-5.7) Band Neutrophils # 0.3 Lymphocytes # (Manual) 3.7 H (0.6-2.4) Monocytes # (Manual) 0.9 H (0.0-0.8) Eosinophils # (Manual) 0.1 (0.0-0.7) Nucleated RBCs # 0 K/uL Sodium 138 (136-148) mmol/L Potassium 3.8 (3.5-5.1) mmol/L Chloride 100 (98-107) mmol/L Carbon Dioxide 27.6 (21.0-32.0) mmol/L BUN 23 H (7.0-18.0) mg/dL Creatinine 1.3 (0.8-1.3) mg/dL Est Cr Clr Drug Dosing 82.91 mL/min Estimated GFR (MDRD) > 60.0 ml/min Glucose 158 H (74-106) mg/dL Calcium 9.0 (8.5-10.1) mg/dL Total Bilirubin 0.3 (0.2-1.0) mg/dL AST 22 (15-37) IU/L ALT 38 (14-63) IU/L Alkaline Phosphatase 74 (46-116) U/L Total Protein 7.5 (6.4-8.2) g/dL Albumin 3.3 L (3.4-5.0) g/dL Globulin 4.2 H (2.6-4.0) g/dL Albumin/Globulin Ratio 0.8 L (0.9-1.6) Meds: Medications Discontinued Medications Generic Name Dose Route Start Last Admin Trade Name Freq PRN Reason Stop Dose Admin Albuterol/Ipratropium 3 ml 11/20/18 13:09 11/20/18 13:21 Duoneb 3.0-0.5 Mg/3 Ml NEB 11/20/18 13:10 3 ml ONETIME ONE Administration Departure - Departure Time of Disposition: 18:51 Disposition: Home, Self-Care 01 Clinical Impression: Paresthesia - Discharge Information Instructions: Acute Bronchitis, Adult, [id number], Paresthesia, [id number] Referrals: PCP,Unknown [Primary Care Provider] - Forms: ED Department Discharge Additional Instructions: The following information is given to patients seen in the emergency department who are being discharged to home. This information is to outline your options for follow-up care. We provide all patients seen in our emergency department with a follow-up referral. The need for follow-up, as well as the timing and circumstances, are variable depending upon the specifics of your emergency department visit. If you don't have a primary care physician on staff, we will provide you with a referral. We always advise you to contact your personal physician following an emergency department visit to inform them of the circumstance of the visit and for follow-up with them and/or the need for any referrals to a consulting specialist. The emergency department will also refer you to a specialist when appropriate. This referral assures that you have the opportunity for follow-up care with a specialist. All of these measure are taken in an effort to provide you with optimal care, which includes your follow-up. Under all circumstances we always encourage you to contact your private physician who remains a resource for coordinating your care. When calling for follow-up care, please make the office aware that this follow-up is from your recent emergency room visit. If for any reason you are refused follow-up, please contact the [facility] Emergency Department at and asked to speak to the emergency department charge nurse. [facility] [address] [place] [id number] [facility] [address] [place] [id number] 1. Please take your medications as directed. They can be very harmful to over take the medications your prescribed. 2. Follow-up with your primary care provider as we discussed. Return to the ED as needed and as discussed. - My Orders Last 24 Hours: My Active Orders 11/20/18 13:09 RT Aerosol Therapy [RC] ASDIRECTED - Assessment/Plan Last 24 Hours: My Active Orders 11/20/18 13:09 RT Aerosol Therapy [RC] ASDIRECTED
[2018-11-20] MEDS ORDERED: Albuterol/Ipratropium 3.0-0.5 MG/3 ML Neb Soln NEB ONE (13:09)
--- NOTE | 2018-11-20 13:33 | CT ---
EXAMINATION: Non contrast CT head. Coronal and sagittal reformats. HISTORY: Tremors Comparison: 05/11/2017. FINDINGS: No evidence of intra or extra axial hemorrhage, midline shift, hydrocephalus or edema. Stable 11 x 0.8 cm interventricular nodule along the anterior aspect of the caudate lobe. No hypoattenuation changes in the major vascular territories to suggest acute infarct. No abnormal intracranial calcifications are detected. No evidence of substantial vascular calcifications. Moderate mucosal thickening within the left maxillary sinus. Orbits and globes are symmetric. Pituitary fossa appears unremarkable. Calvarium is intact. No evidence of skull fracture. IMPRESSION: No acute intracranial findings.
[2018-11-20 14:51] LABS: CHLORIDE,CL 100 mmol/L (98-107); SODIUM,NA 138 mmol/L (136-148)
== END 2018-11-20 15:12 | disposition home or self-care (01) ==
LOC: MW.ED 12:27
DX: R20.2 Paresthesia of skin (principal); F17.210 Nicotine dependence, cigarettes, uncomplicated; Z79.899 Other long term (current) drug therapy; Z79.4 Long term (current) use of insulin
CPT/HCPCS: 36415; 70450; 70450-26; 80053; 85025; 99283; 99284-25; J7620-GY